=== PATIENT | female | born 1960 | race Caucasian/White ===

== ENCOUNTER 2019-08-23 04:36 | Inpatient (IN) ==
[2019-08-23] MEDS ORDERED: Naloxone 0.4 MG/ML INJ IVP PRN (07:22)
[2019-08-23] MEDS ORDERED: Ringers Solution, Lactated 500 ML IVC ONE ×2 (07:30→07:45)
[2019-08-23] MEDS ORDERED: Piperacillin/Tazobactam 3.375 GM in 0.9 % Sodium Chloride Mini Bag 100 ML IVPB SCH (08:00)
[2019-08-23 09:47] LABS: Basophils % 0.2 %; Eosinophils % 0.1 %; Hematocrit 31.3 % (35.3-44.9); Hemoglobin 10.4 g/dL (11.5-15.4); Immature Granulocytes % 0.5 % (0-4); Lymphocytes # 2.2 K/mcL (0.6-4.6); Lymphocytes % 15.1 %; Mean Corpuscular HGB Conc 33.2 g/dL (31.6-35.5); Mean Corpuscular Hemoglobin 25.7 pg (28.0-33.3); Mean Corpuscular Volume 77.3 fL (83.0-100.0); Mean Platelet Volume 10.5 fL (9.4-12.4); Monocytes # 1.9 K/mcL (0.0-1.3); Monocytes % 12.6 %; Neutrophils # 10.6 K/mcL (1.6-8.9); Platelet Count 288 K/mcL (140-400); Red Blood Count 4.05 M/mcL (3.82-4.97); Red Cell Distribution Width 18.5 % (11.5-14.5); Segmented Neutrophils % 71.5 %; White Blood Count 14.8 K/mcL (4.3-11.1)
[2019-08-23] MEDS: 0.9 % Sodium Chloride 1,000 ML IVC SCH (09:50)
[2019-08-23 09:53] LABS: INR 2.4; Prothrombin Time 27.2 Seconds (9.4-12.1)
[2019-08-23] MEDS ORDERED: 0.9 % Sodium Chloride 500 ML IVC ONE (10:09)
[2019-08-23 10:15] LABS: Alanine Aminotransferase 18 Units/L (7-52); Albumin 2.7 g/dL (3.5-5.7); Albumin/Globulin Ratio 0.8 (1.1-2.2); Alkaline Phosphatase 116 Units/L (34-104); Aspartate Amino Transferase 55 Units/L (13-39); Bilirubin,Total 0.8 mg/dL (0.3-1.0); Blood Urea Nitrogen < 2 mg/dL (6-20); Calcium 7.2 mg/dL (8.6-10.3); Carbon Dioxide 24 mEq/L (23-29); Chloride 93 mEq/L (98-107); Globulin 3.2 g/dL (2.4-3.5); Glucose 90 mg/dL (70-105); Magnesium 1.5 mg/dL (1.6-2.6); Phosphorous 2.1 mg/dL (2.7-4.5); Potassium 2.7 mEq/L (3.5-5.1); Sodium 132 mEq/L (136-145); Total Protein 5.9 g/dL (6.4-8.9); eGFR For African Americans > 60 (> 60); eGFR For Non-African Americans > 60 (> 60)
[2019-08-23] MEDS: Acetaminophen 325 MG TABLET PO PRN (12:10)
[2019-08-23] MEDS: Ondansetron 4 MG/2 ML VIAL IVP PRN (12:10)
[2019-08-23 13:32] LABS: Adenovirus Not Detected (Not Detect); Bordetella Pertussis Not Detected (Not Detect); Chlamydophila pneumoniae Not Detected (Not Detect); Coronavirus 229E Not Detected (Not Detect); Coronavirus HKU1 Not Detected (Not Detect); Coronavirus NL63 Not Detected (Not Detect); Coronavirus OC43 Not Detected (Not Detect); Human Metapneumovirus Not Detected (Not Detect); Human Rhinovirus/Enterovirus Not Detected (Not Detect); Influenza A Subtype 2009 H1 Not Detected (Not Detect); Influenza B Not Detected (Not Detect); Mycoplasma pneumoniae Not Detected (Not Detect); Parainfluenza Virus 1 Not Detected (Not Detect); Parainfluenza Virus 2 Not Detected (Not Detect); Parainfluenza Virus 3 Not Detected (Not Detect); Parainfluenza Virus 4 Not Detected (Not Detect); Respiratory Syncytial Virus Not Detected (Not Detect)
[2019-08-23] MEDS ORDERED: Acetaminophen IV 1,000 MG/100 ML INFUS..BTL IVPB ONE (13:32)
[2019-08-23] MEDS ORDERED: Acetaminophen 325 MG TABLET PO ONE (13:58)
[2019-08-23 15:23] LABS: BUN/Creatinine Ratio 4 (6-26); Blood Urea Nitrogen 2 mg/dL (6-20); Calcium 6.6 mg/dL (8.6-10.3); Carbon Dioxide 23 mEq/L (23-29); Chloride 94 mEq/L (98-107); Glucose 104 mg/dL (70-105); Magnesium 1.8 mg/dL (1.6-2.6); Osmolality,Calculated 266 (280-300); Phosphorous 2.3 mg/dL (2.7-4.5); Potassium 2.8 mEq/L (3.5-5.1); Sodium 130 mEq/L (136-145); eGFR For African Americans > 60 (> 60); eGFR For Non-African Americans > 60 (> 60)
[2019-08-23 15:35] LABS: Adenovirus F 40/41 PCR Not detected (Not detect); Astrovirus PCR Not detected (Not detect); C.difficile Toxin A/B Gene PCR Not detected (Not detect); Campylobacter by PCR Not detected (Not detect); Cryptosporidium by PCR Not detected (Not detect); Cyclospora cayetanensis PCR Not detected (Not detect); E. coli O157 by PCR Not detected (Not detect); Entamoeba histolytica PCR Not detected (Not detect); Enteroaggregative E.coli(EAEC) Not detected (Not detect); Enteropathogenic E.coli(EPEC) Not detected (Not detect); Enterotoxigenic E.coli (ETEC) Not detected (Not detect); Giardia lamblia PCR Not detected (Not detect); Norovirus GI/GII PCR Not detected (Not detect); Plesiomonas shigelloides PCR Not detected (Not detect); Rotavirus A PCR Not detected (Not detect); Salmonella PCR Not detected (Not detect); Sapovirus PCR Not detected (Not detect); Shig/EnteroinvasiveE coli EIEC Not detected (Not detect); Shigalike tox-prod E coli STEC Not detected (Not detect); Vibrio PCR Not detected (Not detect); Vibrio cholerae PCR Not detected (Not detect); Yersinia enterocolitica PCR Not detected (Not detect)
[2019-08-23] MEDS ORDERED: Potassium Chloride 40 MEQ, Lidocaine 1% 2 ML in 0.9 % Sodium Chloride 500 ML IVPB ONE (15:39)
[2019-08-23] MEDS ORDERED: Isovue-370 500 ML BOTTLE IVP ONE (15:47)
[2019-08-23] MEDS: Cefepime HCl 2,000 MG in Water for inj. (sterile) 20 ML IVP SCH (17:19)
[2019-08-23] MEDS ORDERED: Gadolinium Contrast Agent (WT Based) IV PRN (18:14)
[2019-08-23] MEDS: Calcium Gluconate 1gm/50mL 1 GM/50 ML BAG IVPB SCH ×2 (18:57→19:57)
[2019-08-23] MEDS: Piperacillin/Tazobactam 3.375 GM in 0.9 % Sodium Chloride Mini Bag 100 ML IVPB SCH (19:21)
[2019-08-24] MEDS: Cefepime HCl 2,000 MG in Water for inj. (sterile) 20 ML IVP SCH ×2 (01:15→09:30)
[2019-08-24] MEDS: Piperacillin/Tazobactam 3.375 GM in 0.9 % Sodium Chloride Mini Bag 100 ML IVPB SCH ×3 (01:18→18:03)
[2019-08-24 02:20] LABS: Basophils % 0.2 %; Eosinophils # 0.2 K/mcL (0.0-0.6); Eosinophils % 1.8 %; Hematocrit 29.2 % (35.3-44.9); Hemoglobin 9.3 g/dL (11.5-15.4); Immature Granulocytes % 0.5 % (0-4); Lymphocytes # 1.1 K/mcL (0.6-4.6); Lymphocytes % 8.6 %; Mean Corpuscular HGB Conc 31.8 g/dL (31.6-35.5); Mean Corpuscular Hemoglobin 25.6 pg (28.0-33.3); Mean Corpuscular Volume 80.4 fL (83.0-100.0); Mean Platelet Volume 11.2 fL (9.4-12.4); Monocytes % 7.9 %; Neutrophils # 10.6 K/mcL (1.6-8.9); Platelet Count 232 K/mcL (140-400); Red Blood Count 3.63 M/mcL (3.82-4.97); Red Cell Distribution Width 18.6 % (11.5-14.5); White Blood Count 13.1 K/mcL (4.3-11.1)
[2019-08-24 02:30] LABS: INR 2.6; Prothrombin Time 29.7 Seconds (9.4-12.1)
[2019-08-24 02:40] LABS: Alanine Aminotransferase 17 Units/L (7-52); Albumin 2.4 g/dL (3.5-5.7); Albumin/Globulin Ratio 0.8 (1.1-2.2); Alkaline Phosphatase 110 Units/L (34-104); Aspartate Amino Transferase 55 Units/L (13-39); BUN/Creatinine Ratio 6 (6-26); Blood Urea Nitrogen 3 mg/dL (6-20); Calcium 7.3 mg/dL (8.6-10.3); Carbon Dioxide 26 mEq/L (23-29); Chloride 98 mEq/L (98-107); Glucose 108 mg/dL (70-105); Magnesium 1.8 mg/dL (1.6-2.6); Osmolality,Calculated 277 (280-300); Phosphorous 2.4 mg/dL (2.7-4.5); Potassium 3.2 mEq/L (3.5-5.1); Sodium 135 mEq/L (136-145); Total Protein 5.4 g/dL (6.4-8.9); eGFR For African Americans > 60 (> 60); eGFR For Non-African Americans > 60 (> 60)
[2019-08-24 02:41] LABS: % Iron Saturation 7 % (15-50); Iron 12 mcg/dL (50-170); Transferrin 127 mg/dL (203-362)
[2019-08-24 02:58] LABS: Ferritin 706 ng/mL (10-120)
[2019-08-24 03:07] LABS: Vitamin B12 > 1500 pg/mL (250-1100)
[2019-08-24] MEDS: Ondansetron 4 MG/2 ML VIAL IVP PRN (03:14)
[2019-08-24] MEDS: 0.9 % Sodium Chloride 1,000 ML IVC SCH (05:30)
[2019-08-24] MEDS: Acetaminophen 325 MG TABLET PO PRN ×2 (08:01→14:22)
[2019-08-24] MEDS ORDERED: *HR* Labetalol 20 MG/4 ML SYRINGE IVP PRN (08:21)
[2019-08-24] MEDS: Diphenoxylate/Atropine 1 TAB TABLET PO PRN (14:23)
[2019-08-25] MEDS: Ondansetron 4 MG/2 ML VIAL IVP PRN (00:32)
[2019-08-25 01:01] LABS: Basophils % 0.5 %; Eosinophils # 0.4 K/mcL (0.0-0.6); Eosinophils % 4.3 %; Hematocrit 26.7 % (35.3-44.9); Hemoglobin 8.3 g/dL (11.5-15.4); Immature Granulocytes % 0.6 % (0-4); Lymphocytes # 1.4 K/mcL (0.6-4.6); Lymphocytes % 16.7 %; Mean Corpuscular HGB Conc 31.1 g/dL (31.6-35.5); Mean Corpuscular Hemoglobin 25.4 pg (28.0-33.3); Mean Corpuscular Volume 81.7 fL (83.0-100.0); Mean Platelet Volume 10.6 fL (9.4-12.4); Monocytes # 0.9 K/mcL (0.0-1.3); Neutrophils # 5.7 K/mcL (1.6-8.9); Platelet Count 214 K/mcL (140-400); Red Blood Count 3.27 M/mcL (3.82-4.97); Red Cell Distribution Width 18.3 % (11.5-14.5); Segmented Neutrophils % 66.9 %; White Blood Count 8.5 K/mcL (4.3-11.1)
[2019-08-25] MEDS: Piperacillin/Tazobactam 3.375 GM in 0.9 % Sodium Chloride Mini Bag 100 ML IVPB SCH ×3 (01:02→15:51)
[2019-08-25] MEDS: 0.9 % Sodium Chloride 1,000 ML IVC SCH ×3 (01:06→18:34)
[2019-08-25 01:22] LABS: BUN/Creatinine Ratio 7 (6-26); Blood Urea Nitrogen 3 mg/dL (6-20); Calcium 6.9 mg/dL (8.6-10.3); Carbon Dioxide 27 mEq/L (23-29); Chloride 100 mEq/L (98-107); Glucose 109 mg/dL (70-105); Magnesium 1.7 mg/dL (1.6-2.6); Osmolality,Calculated 275 (280-300); Phosphorous 1.6 mg/dL (2.7-4.5); Potassium 2.7 mEq/L (3.5-5.1); Sodium 134 mEq/L (136-145); eGFR For African Americans > 60 (> 60); eGFR For Non-African Americans > 60 (> 60)
[2019-08-25] MEDS: Diphenoxylate/Atropine 1 TAB TABLET PO PRN (07:52)
[2019-08-25] MEDS ORDERED: Aminoglycoside Consult 1 EACH MC ONE (08:55)
[2019-08-25] MEDS ORDERED: 0.9 % Sodium Chloride 1,000 ML IVC SCH (16:00)
[2019-08-26] MEDS: Piperacillin/Tazobactam 3.375 GM in 0.9 % Sodium Chloride Mini Bag 100 ML IVPB SCH ×2 (00:02→07:48)
[2019-08-26] MEDS: *HR* Labetalol 20 MG/4 ML SYRINGE IVP PRN ×2 (03:27→07:56)
[2019-08-26 06:27] LABS: Hematocrit 27.4 % (35.3-44.9); Hemoglobin 8.7 g/dL (11.5-15.4); Mean Corpuscular HGB Conc 31.8 g/dL (31.6-35.5); Mean Corpuscular Hemoglobin 25.1 pg (28.0-33.3); Mean Corpuscular Volume 79.2 fL (83.0-100.0); Mean Platelet Volume 10.9 fL (9.4-12.4); Platelet Count 247 K/mcL (140-400); Red Blood Count 3.46 M/mcL (3.82-4.97); White Blood Count 9.8 K/mcL (4.3-11.1)
[2019-08-26 06:47] LABS: INR 1.7; Prothrombin Time 18.9 Seconds (9.4-12.1)
[2019-08-26 06:55] LABS: Blood Urea Nitrogen < 2 mg/dL (6-20); Carbon Dioxide 24 mEq/L (23-29); Chloride 104 mEq/L (98-107); Glucose 91 mg/dL (70-105); Magnesium 1.8 mg/dL (1.6-2.6); Phosphorous 1.2 mg/dL (2.7-4.5); Potassium 3.1 mEq/L (3.5-5.1); Sodium 140 mEq/L (136-145); eGFR For African Americans > 60 (> 60); eGFR For Non-African Americans > 60 (> 60)
[2019-08-26] MEDS: Diphenoxylate/Atropine 1 TAB TABLET PO PRN ×2 (07:55→16:55)
[2019-08-26] MEDS ORDERED: levoFLOXacin 750 MG/150 ML 750 MG/150 ML BAG IVPB SCH ×2 (09:00)
[2019-08-26] MEDS ORDERED: Potassium Phosphate 44 MEQ in 0.9 % Sodium Chloride 250 ML IVPB ONE (11:37)
[2019-08-26] MEDS: levoFLOXacin 750 MG/150 ML 750 MG/150 ML BAG IVPB SCH (22:12)
[2019-08-27] MEDS: Diphenoxylate/Atropine 1 TAB TABLET PO PRN (00:54)
[2019-08-27] MEDS ORDERED: levoFLOXacin 750 MG/150 ML 750 MG/150 ML BAG IVPB SCH (09:00)
[2019-08-27 14:41] LABS: BUN/Creatinine Ratio 3 (6-26); Blood Urea Nitrogen 2 mg/dL (6-20); Calcium 7.1 mg/dL (8.6-10.3); Carbon Dioxide 25 mEq/L (23-29); Chloride 102 mEq/L (98-107); Glucose 135 mg/dL (70-105); Magnesium 1.3 mg/dL (1.6-2.6); Osmolality,Calculated 282 (280-300); Potassium 2.9 mEq/L (3.5-5.1); Sodium 137 mEq/L (136-145); eGFR For African Americans > 60 (> 60); eGFR For Non-African Americans > 60 (> 60)
[2019-08-27] MEDS ORDERED: Potassium Chloride 40 MEQ, Lidocaine 1% 2 ML in D5% in Water 500 ML IVPB ONE (14:49)
[2019-08-27] MEDS ORDERED: *HR* OxyCODONE Immed Rel 5 MG TABLET PO PRN (14:51)
[2019-08-27] MEDS: BuPROPion XL (24 HR) 150 MG TABLET PO SCH (17:32)
[2019-08-27] MEDS: levoFLOXacin 750 MG/150 ML 750 MG/150 ML BAG IVPB SCH (19:22)
[2019-08-27] MEDS: *HR* Labetalol 20 MG/4 ML SYRINGE IVP PRN (23:51)
[2019-08-28 02:13] LABS: Hematocrit 29.3 % (35.3-44.9); Hemoglobin 9.4 g/dL (11.5-15.4); Mean Corpuscular HGB Conc 32.1 g/dL (31.6-35.5); Mean Corpuscular Hemoglobin 25.3 pg (28.0-33.3); Mean Platelet Volume 10.7 fL (9.4-12.4); Platelet Count 243 K/mcL (140-400); Red Blood Count 3.71 M/mcL (3.82-4.97); Red Cell Distribution Width 20.4 % (11.5-14.5); White Blood Count 10.3 K/mcL (4.3-11.1)
[2019-08-28 02:30] LABS: BUN/Creatinine Ratio 3 (6-26); Blood Urea Nitrogen 2 mg/dL (6-20); Calcium 7.4 mg/dL (8.6-10.3); Carbon Dioxide 23 mEq/L (23-29); Chloride 102 mEq/L (98-107); Glucose 93 mg/dL (70-105); Magnesium 1.5 mg/dL (1.6-2.6); Osmolality,Calculated 276 (280-300); Potassium 3.1 mEq/L (3.5-5.1); Sodium 135 mEq/L (136-145); eGFR For African Americans > 60 (> 60); eGFR For Non-African Americans > 60 (> 60)
[2019-08-28] MEDS ORDERED: Potassium Chloride 40 MEQ, Lidocaine 1% 2 ML in D5% in Water 500 ML IVPB ONE ×2 (07:16→11:50)
[2019-08-28] MEDS: BuPROPion XL (24 HR) 150 MG TABLET PO SCH (07:56)
[2019-08-28] MEDS: Folic Acid 1 MG TABLET PO SCH (07:56)
[2019-08-28] MEDS: *HR* Labetalol 20 MG/4 ML SYRINGE IVP PRN (12:51)
[2019-08-28] MEDS ORDERED: 0.9 % Sodium Chloride 1,000 ML IVC ONE (14:12)
[2019-08-28] MEDS: 0.9 % Sodium Chloride 1,000 ML IVC SCH (16:34)
[2019-08-28] MEDS: Cholestyramine 4 GM POWD.PACK PO SCH (16:35)
[2019-08-28] MEDS ORDERED: Dexamethasone 4 MG/ML VIAL IVP ONE (17:13)
[2019-08-28] MEDS: levoFLOXacin 750 MG/150 ML 750 MG/150 ML BAG IVPB SCH (18:05)
[2019-08-28 23:02] LABS: Bilirubin,Urine Negative (Negative); Blood,Urine Negative (Negative); Clarity,Urine Clear (Clear); Color,Urine Yellow (Yellow); Glucose,Urine (UA) Normal (Normal); Ketones,Urine Negative (Negative); Leukocyte Esterase,Urine Negative (Negative); Nitrite,Urine Negative (Negative); PH,Urine 6.5 pH Units (5.0-8.0); Protein,Urine Negative (Neg-Trace); Specific Gravity,Urine 1.005 (1.010-1.025); Urobilinogen,Urine Normal (Normal)
[2019-08-29 02:30] LABS: Hematocrit 30.1 % (35.3-44.9); Hemoglobin 9.5 g/dL (11.5-15.4); Mean Corpuscular HGB Conc 31.6 g/dL (31.6-35.5); Mean Corpuscular Hemoglobin 25.4 pg (28.0-33.3); Mean Corpuscular Volume 80.5 fL (83.0-100.0); Mean Platelet Volume 10.8 fL (9.4-12.4); Platelet Count 236 K/mcL (140-400); Red Blood Count 3.74 M/mcL (3.82-4.97); Red Cell Distribution Width 21.3 % (11.5-14.5); White Blood Count 11.6 K/mcL (4.3-11.1)
[2019-08-29] MEDS: 0.9 % Sodium Chloride 1,000 ML IVC SCH (02:43)
[2019-08-29 02:55] LABS: BUN/Creatinine Ratio 5 (6-26); Blood Urea Nitrogen 3 mg/dL (6-20); Calcium 7.3 mg/dL (8.6-10.3); Carbon Dioxide 20 mEq/L (23-29); Chloride 105 mEq/L (98-107); Glucose 146 mg/dL (70-105); Magnesium 1.9 mg/dL (1.6-2.6); Osmolality,Calculated 285 (280-300); Potassium 4.1 mEq/L (3.5-5.1); Sodium 138 mEq/L (136-145); eGFR For African Americans > 60 (> 60); eGFR For Non-African Americans > 60 (> 60)
[2019-08-29] MEDS: Folic Acid 1 MG TABLET PO SCH (08:38)
[2019-08-29] MEDS: BuPROPion XL (24 HR) 150 MG TABLET PO SCH (08:38)
[2019-08-29] MEDS: Cholestyramine 4 GM POWD.PACK PO SCH (08:38)
[2019-08-29] MEDS ORDERED: dexAMETHasone 4 MG TABLET PO SCH (09:00)
[2019-08-29 09:18] VITALS: BP 149/95
== END 2019-08-29 10:50 | disposition home or self-care (01) | DRG 640 ==
LOC: CDU → SUATTDRO 06:09 → CDU 06:12 → 2ANU 16:10
PROVIDERS: ADMIT Internal Medicine; ATTEND Internal Medicine

== ENCOUNTER 2019-09-12 15:10 | Observation (INO) ==
[2019-09-12] MEDS ORDERED: *HR* Promethazine 25 MG/ML VIAL IVP PRN (18:17)
[2019-09-12] MEDS ORDERED: Naloxone 0.4 MG/ML INJ IVP PRN (18:17)
[2019-09-12] MEDS ORDERED: Ondansetron 4 MG/2 ML VIAL IVP PRN (18:17)
[2019-09-12] MEDS ORDERED: *HR* OxyCODONE Immed Rel 5 MG TABLET PO PRN (18:25)
[2019-09-12] MEDS ORDERED: 0.9 % Sodium Chloride 1,000 ML IVC SCH (18:30)
[2019-09-12 19:07] LABS: BUN/Creatinine Ratio 16 (6-26); Blood Urea Nitrogen 15 mg/dL (6-20); Calcium 7.4 mg/dL (8.6-10.3); Carbon Dioxide 20 mEq/L (23-29); Chloride 99 mEq/L (98-107); Glucose 100 mg/dL (70-105); Osmolality,Calculated 273 (280-300); Potassium 4.8 mEq/L (3.5-5.1); Sodium 131 mEq/L (136-145); eGFR For African Americans > 60 (> 60); eGFR For Non-African Americans > 60 (> 60)
[2019-09-12] MEDS: Pantoprazole 40 MG VIAL IVP SCH (19:37)
[2019-09-12] MEDS: *HR* Heparin 5,000 UNIT/ML VIAL SQ SCH (21:01)
[2019-09-13] MEDS ORDERED: 0.9 % Sodium Chloride 1,000 ML IVC ONE (00:42)
[2019-09-13] MEDS: 0.9 % Sodium Chloride 1,000 ML IVC SCH ×2 (01:29→08:23)
[2019-09-13 02:05] LABS: Adenovirus F 40/41 PCR Not detected (Not detect); Astrovirus PCR Not detected (Not detect); C.difficile Toxin A/B Gene PCR Not detected (Not detect); Campylobacter by PCR Not detected (Not detect); Cryptosporidium by PCR Not detected (Not detect); Cyclospora cayetanensis PCR Not detected (Not detect); E. coli O157 by PCR Not detected (Not detect); Entamoeba histolytica PCR Not detected (Not detect); Enteroaggregative E.coli(EAEC) Not detected (Not detect); Enteropathogenic E.coli(EPEC) Not detected (Not detect); Enterotoxigenic E.coli (ETEC) Not detected (Not detect); Giardia lamblia PCR Not detected (Not detect); Norovirus GI/GII PCR Not detected (Not detect); Plesiomonas shigelloides PCR Not detected (Not detect); Salmonella PCR Not detected (Not detect); Shig/EnteroinvasiveE coli EIEC Not detected (Not detect); Shigalike tox-prod E coli STEC Not detected (Not detect); Vibrio PCR Not detected (Not detect); Vibrio cholerae PCR Not detected (Not detect); Yersinia enterocolitica PCR Not detected (Not detect)
[2019-09-13 02:06] LABS: Rotavirus A PCR Not detected (Not detect); Sapovirus PCR Not detected (Not detect)
[2019-09-13] MEDS: *HR* Heparin 5,000 UNIT/ML VIAL SQ SCH (06:25)
[2019-09-13] MEDS: Pantoprazole 40 MG VIAL IVP SCH (06:25)
[2019-09-13 06:35] LABS: BUN/Creatinine Ratio 15 (6-26); Blood Urea Nitrogen 9 mg/dL (6-20); Calcium 7.1 mg/dL (8.6-10.3); Carbon Dioxide 17 mEq/L (23-29); Chloride 103 mEq/L (98-107); Glucose 94 mg/dL (70-105); Osmolality,Calculated 272 (280-300); Potassium 4.3 mEq/L (3.5-5.1); Sodium 132 mEq/L (136-145); eGFR For African Americans > 60 (> 60); eGFR For Non-African Americans > 60 (> 60)
[2019-09-13 07:09] LABS: Hematocrit 24.4 % (35.3-44.9); Hemoglobin 7.7 g/dL (11.5-15.4); Lymphocytes # 0.8 K/mcL (0.6-4.6); Mean Corpuscular HGB Conc 31.6 g/dL (31.6-35.5); Mean Corpuscular Hemoglobin 25.9 pg (28.0-33.3); Mean Platelet Volume 10.4 fL (9.4-12.4); Platelet Count 234 K/mcL (140-400); Red Blood Count 2.97 M/mcL (3.82-4.97); Red Cell Distribution Width 24.7 % (11.5-14.5); White Blood Count 3.5 K/mcL (4.3-11.1)
[2019-09-13 07:11] LABS: Mean Corpuscular Volume 82.2 fL (83.0-100.0)
[2019-09-13 07:48] LABS: Eosinophils # 0.1 K/mcL (0.0-0.6); Monocytes # 0.5 K/mcL (0.0-1.3); Neutrophils # 2.2 K/mcL (1.6-8.9); Platelet Estimate Normal (Normal)
[2019-09-13 07:49] LABS: Hypochromasia Present (Not Present)
[2019-09-13 07:50] LABS: Anisocytosis 3+ (Not Present); Poikilocytosis 1+ (Not Present)
[2019-09-13] MEDS ORDERED: BuPROPion XL (24 HR) 150 MG TABLET PO SCH (09:00)
[2019-09-13 11:05] VITALS: BP 114/67
== END 2019-09-13 15:17 | disposition home or self-care (01) ==
LOC: 2NNU → SUATTDRO 17:34 → 2NNU 18:05
PROVIDERS: ADMIT Internal Medicine; ATTEND Family Medicine

== ENCOUNTER 2019-09-22 13:50 | Inpatient (IN) ==
[2019-09-22] MEDS ORDERED: Naloxone 0.4 MG/ML INJ IVP PRN (16:19)
[2019-09-22] MEDS ORDERED: 0.9 % Sodium Chloride 1,000 ML IVC ONE (16:29)
[2019-09-22] MEDS ORDERED: Acetaminophen 325 MG TABLET PO PRN (16:29)
[2019-09-22 17:16] LABS: Basophils % 0.2 %; Eosinophils % 0.5 %; Hemoglobin 8.7 g/dL (11.5-15.4); Mean Platelet Volume 9.3 fL (9.4-12.4); Segmented Neutrophils % 91.3 %
[2019-09-22 17:18] LABS: Basophils # 0.1 K/mcL (0.0-0.2); Eosinophils # 0.1 K/mcL (0.0-0.6); Hematocrit 28.4 % (35.3-44.9); Immature Granulocytes % 2.3 % (0-4); Lymphocytes # 0.9 K/mcL (0.6-4.6); Lymphocytes % 3.1 %; Mean Corpuscular HGB Conc 30.6 g/dL (31.6-35.5); Mean Corpuscular Hemoglobin 25.4 pg (28.0-33.3); Monocytes # 0.7 K/mcL (0.0-1.3); Monocytes % 2.6 %; Neutrophils # 25.9 K/mcL (1.6-8.9); Platelet Count 275 K/mcL (140-400); Red Blood Count 3.42 M/mcL (3.82-4.97); Red Cell Distribution Width 23.7 % (11.5-14.5); White Blood Count 28.4 K/mcL (4.3-11.1)
[2019-09-22 17:31] LABS: Albumin 2.5 g/dL (3.5-5.7); Albumin/Globulin Ratio 0.9 (1.1-2.2); Bilirubin,Direct 0.5 mg/dL (0.0-0.2); Bilirubin,Indirect 0.5 mg/dL (0.0-1.0); Calcium 7.1 mg/dL (8.6-10.3); Globulin 2.9 g/dL (2.4-3.5); Magnesium 0.9 mg/dL (1.6-2.6); Phosphorous 4.5 mg/dL (2.7-4.5); Potassium 4.1 mEq/L (3.5-5.1); Total Protein 5.4 g/dL (6.4-8.9)
[2019-09-22 17:40] LABS: Anisocytosis 3+ (Not Present); Hypochromasia Present (Not Present)
[2019-09-22 17:41] LABS: Polychromasia 1+ (Not Present)
[2019-09-22] MEDS: Vancomycin Oral Soln 125 MG/2.5 ML UDC PO SCH ×2 (17:42→20:18)
[2019-09-22] MEDS: MetroNIDAZOLE 500 MG/100 ML 500 MG/100 ML BAG IVPB SCH (17:43)
[2019-09-22 17:44] LABS: INR 1.9; Prothrombin Time 21.1 Seconds (9.4-12.1)
[2019-09-22] MEDS: Hydrocortisone Sodium Succ 100 MG/2 ML VIAL IVP SCH ×2 (17:44→23:31)
[2019-09-22] MEDS: 0.9 % Sodium Chloride 1,000 ML IVC SCH (17:44)
[2019-09-22] MEDS ORDERED: Norepinephrine 4 MG in 0.9 % Sodium Chloride 250 ML IVC SCH (17:45)
[2019-09-22] MEDS: Calcium Gluconate 1gm/50mL 1 GM/50 ML BAG IVPB SCH ×2 (18:38→20:14)
[2019-09-22 19:30] LABS: Adenovirus Not Detected (Not Detect); Coronavirus 229E Not Detected (Not Detect); Coronavirus HKU1 Not Detected (Not Detect); Coronavirus NL63 Not Detected (Not Detect); Coronavirus OC43 Not Detected (Not Detect); Human Metapneumovirus Not Detected (Not Detect)
[2019-09-22 19:31] LABS: Bordetella Pertussis Not Detected (Not Detect); Chlamydophila pneumoniae Not Detected (Not Detect); Human Rhinovirus/Enterovirus Not Detected (Not Detect); Influenza A Subtype 2009 H1 Not Detected (Not Detect); Influenza B Not Detected (Not Detect); Mycoplasma pneumoniae Not Detected (Not Detect); Parainfluenza Virus 1 Not Detected (Not Detect); Parainfluenza Virus 2 Not Detected (Not Detect); Parainfluenza Virus 3 Not Detected (Not Detect); Parainfluenza Virus 4 Not Detected (Not Detect); Respiratory Syncytial Virus Not Detected (Not Detect)
[2019-09-22 20:07] LABS: Adenovirus F 40/41 PCR Not detected (Not detect); Astrovirus PCR Not detected (Not detect); C.difficile Toxin A/B Gene PCR Not detected (Not detect); Campylobacter by PCR Not detected (Not detect); Cryptosporidium by PCR Not detected (Not detect); Cyclospora cayetanensis PCR Not detected (Not detect); E. coli O157 by PCR Not detected (Not detect); Entamoeba histolytica PCR Not detected (Not detect); Enteroaggregative E.coli(EAEC) Not detected (Not detect); Enteropathogenic E.coli(EPEC) Not detected (Not detect); Enterotoxigenic E.coli (ETEC) Not detected (Not detect); Giardia lamblia PCR Not detected (Not detect); Norovirus GI/GII PCR Not detected (Not detect); Plesiomonas shigelloides PCR Not detected (Not detect); Rotavirus A PCR Not detected (Not detect); Salmonella PCR Not detected (Not detect); Sapovirus PCR Not detected (Not detect); Shig/EnteroinvasiveE coli EIEC Not detected (Not detect); Shigalike tox-prod E coli STEC Not detected (Not detect); Vibrio PCR Not detected (Not detect); Vibrio cholerae PCR Not detected (Not detect); Yersinia enterocolitica PCR Not detected (Not detect)
[2019-09-22] MEDS: *HR* Heparin 5,000 UNIT/ML VIAL SQ SCH (23:32)
[2019-09-23] MEDS: MetroNIDAZOLE 500 MG/100 ML 500 MG/100 ML BAG IVPB SCH (02:31)
[2019-09-23] MEDS: Hydrocortisone Sodium Succ 100 MG/2 ML VIAL IVP SCH (05:46)
[2019-09-23] MEDS: 0.9 % Sodium Chloride 1,000 ML IVC SCH ×3 (05:50→18:56)
[2019-09-23 07:06] LABS: VBG Ionized Calcium 1.06 mmol/L (1.15-1.35)
[2019-09-23 07:15] LABS: Basophils % 0.2 %; Eosinophils % 0.1 %; Immature Granulocytes % 1.9 % (0-4); Monocytes % 3.2 %
[2019-09-23 07:16] LABS: Basophils # 0.1 K/mcL (0.0-0.2); Hematocrit 27.2 % (35.3-44.9); Hemoglobin 8.5 g/dL (11.5-15.4); Lymphocytes # 0.8 K/mcL (0.6-4.6); Lymphocytes % 2.8 %; Mean Corpuscular HGB Conc 31.3 g/dL (31.6-35.5); Mean Corpuscular Hemoglobin 26.3 pg (28.0-33.3); Mean Corpuscular Volume 84.2 fL (83.0-100.0); Mean Platelet Volume 9.6 fL (9.4-12.4); Neutrophils # 27.3 K/mcL (1.6-8.9); Platelet Count 263 K/mcL (140-400); Red Blood Count 3.23 M/mcL (3.82-4.97); Red Cell Distribution Width 23.9 % (11.5-14.5); Segmented Neutrophils % 91.8 %; White Blood Count 29.7 K/mcL (4.3-11.1)
[2019-09-23 07:19] LABS: Albumin 2.8 g/dL (3.5-5.7); Albumin/Globulin Ratio 0.9 (1.1-2.2); Bilirubin,Direct 0.2 mg/dL (0.0-0.2); Bilirubin,Indirect 0.3 mg/dL (0.0-1.0); Bilirubin,Total 0.5 mg/dL (0.3-1.0); Calcium 7.5 mg/dL (8.6-10.3); Globulin 3.1 g/dL (2.4-3.5); Magnesium 1.3 mg/dL (1.6-2.6); Phosphorous 5.4 mg/dL (2.7-4.5); Potassium 3.4 mEq/L (3.5-5.1); Total Protein 5.9 g/dL (6.4-8.9)
[2019-09-23 07:37] LABS: INR 2.2; Prothrombin Time 24.7 Seconds (9.4-12.1)
[2019-09-23 07:39] LABS: Activated Partial Thrombo Time 31.1 Seconds (26.0-36.0)
[2019-09-23] MEDS: *HR* Heparin 5,000 UNIT/ML VIAL SQ SCH ×3 (07:54→20:28)
[2019-09-23 07:55] LABS: Hypochromasia Present (Not Present)
[2019-09-23 07:56] LABS: Anisocytosis 2+ (Not Present); Platelet Estimate Normal (Normal); Reactive Lymphocytes Present (Not Present)
[2019-09-23 08:23] LABS: Bilirubin,Urine Negative (Negative); Blood,Urine Negative (Negative); Clarity,Urine Clear (Clear); Color,Urine Yellow (Yellow); Glucose,Urine (UA) Normal (Normal); Ketones,Urine Negative (Negative); Leukocyte Esterase,Urine Negative (Negative); Nitrite,Urine Negative (Negative); Protein,Urine Negative (Neg-Trace); Specific Gravity,Urine 1.011 (1.010-1.025); Urobilinogen,Urine Normal (Normal)
[2019-09-23] MEDS ORDERED: *HR* OxyCODONE Immed Rel 5 MG TABLET PO PRN (08:48)
[2019-09-23] MEDS ORDERED: *HR* LORazepam 0.5 MG TABLET PO PRN (08:48)
[2019-09-23] MEDS ORDERED: Naloxone 0.4 MG/ML INJ IVP PRN (08:48)
[2019-09-23] MEDS: dexAMETHasone 4 MG TABLET PO SCH (09:40)
[2019-09-23] MEDS: BuPROPion XL (24 HR) 150 MG TABLET PO SCH (09:40)
[2019-09-23] MEDS: Folic Acid 1 MG TABLET PO SCH (09:41)
[2019-09-23] MEDS: Cholecalciferol (D-3) 1,000 UNIT (25MCG) TABLET PO SCH (09:41)
[2019-09-23] MEDS: Multivit/Ca/Min/Fe/FA 1 TAB TABLET PO SCH (09:41)
[2019-09-23] MEDS: Diphenoxylate/Atropine 1 TAB TABLET PO PRN (13:11)
[2019-09-23] MEDS: Cholestyramine 4 GM POWD.PACK PO SCH (16:55)
[2019-09-23] MEDS ORDERED: Piperacillin/Tazobactam 3.375 GM in 0.9 % Sodium Chloride Mini Bag 100 ML IVPB SCH (19:22)
[2019-09-23] MEDS: Piperacillin/Tazobactam 3.375 GM in 0.9 % Sodium Chloride Mini Bag 100 ML IVPB SCH (20:28)
[2019-09-24] MEDS: Piperacillin/Tazobactam 3.375 GM in 0.9 % Sodium Chloride Mini Bag 100 ML IVPB SCH ×3 (03:35→20:56)
[2019-09-24] MEDS: *HR* Heparin 5,000 UNIT/ML VIAL SQ SCH ×3 (05:56→20:55)
[2019-09-24] MEDS: 0.9 % Sodium Chloride 1,000 ML IVC SCH ×2 (05:57→16:04)
[2019-09-24 06:49] LABS: White Blood Count 19.9 K/mcL (4.3-11.1)
[2019-09-24 06:50] LABS: Basophils % 0.1 %; Hematocrit 23.7 % (35.3-44.9); Hemoglobin 7.4 g/dL (11.5-15.4); Immature Granulocytes % 1.3 % (0-4); Lymphocytes # 0.7 K/mcL (0.6-4.6); Lymphocytes % 3.7 %; Mean Corpuscular HGB Conc 31.2 g/dL (31.6-35.5); Mean Corpuscular Volume 83.2 fL (83.0-100.0); Mean Platelet Volume 9.8 fL (9.4-12.4); Monocytes # 0.8 K/mcL (0.0-1.3); Monocytes % 4.2 %; Platelet Count 263 K/mcL (140-400); Red Blood Count 2.85 M/mcL (3.82-4.97); Red Cell Distribution Width 23.9 % (11.5-14.5); Segmented Neutrophils % 90.7 %
[2019-09-24 06:54] LABS: Neutrophils # 18.1 K/mcL (1.6-8.9)
[2019-09-24 07:14] LABS: Anisocytosis 2+ (Not Present); Ovalocytes 1+ (Not Present); Tear Drop Cells 1+ (Not Present)
[2019-09-24 07:25] LABS: Alanine Aminotransferase 33 Units/L (7-52); Albumin 2.5 g/dL (3.5-5.7); Albumin/Globulin Ratio 0.8 (1.1-2.2); Alkaline Phosphatase 158 Units/L (34-104); Aspartate Amino Transferase 46 Units/L (13-39); BUN/Creatinine Ratio 22 (6-26); Bilirubin,Total 0.4 mg/dL (0.3-1.0); Blood Urea Nitrogen 17 mg/dL (6-20); Calcium 6.8 mg/dL (8.6-10.3); Carbon Dioxide 15 mEq/L (23-29); Chloride 110 mEq/L (98-107); Glucose 118 mg/dL (70-105); Osmolality,Calculated 285 (280-300); Potassium 3.1 mEq/L (3.5-5.1); Sodium 136 mEq/L (136-145); Total Protein 5.5 g/dL (6.4-8.9); eGFR For African Americans > 60 (> 60); eGFR For Non-African Americans > 60 (> 60)
[2019-09-24] MEDS ORDERED: Cholestyramine 4 GM POWD.PACK PO ONE ×2 (08:11)
[2019-09-24] MEDS ORDERED: 0.9 % Sodium Chloride (Mini-Bag +) 100 ML IVBAG ONE (08:11)
[2019-09-24] MEDS ORDERED: Piperacillin/Tazobactam 3.375 GM VIAL ONE (08:11)
[2019-09-24] MEDS ORDERED: Cholecalciferol (D-3) 1,000 UNIT (25MCG) TABLET PO ONE (08:11)
[2019-09-24] MEDS ORDERED: Multivit/Ca/Min/Fe/FA 1 TAB TABLET ONE (08:11)
[2019-09-24] MEDS ORDERED: BuPROPion XL (24 HR) 150 MG TABLET PO ONE (08:11)
[2019-09-24] MEDS ORDERED: Folic Acid 1 MG TABLET ONE (08:11)
[2019-09-24] MEDS ORDERED: dexAMETHasone 4 MG TABLET PO ONE (08:11)
[2019-09-24] MEDS ORDERED: Aminoglycoside Consult 1 EACH MC ONE (08:56)
[2019-09-24 14:17] LABS: Magnesium 1.5 mg/dL (1.6-2.6)
[2019-09-24] MEDS: Cholestyramine 4 GM POWD.PACK PO SCH ×2 (16:01→16:44)
[2019-09-24] MEDS: Cholecalciferol (D-3) 1,000 UNIT (25MCG) TABLET PO SCH (16:02)
[2019-09-24] MEDS: Multivit/Ca/Min/Fe/FA 1 TAB TABLET PO SCH (16:02)
[2019-09-24] MEDS: BuPROPion XL (24 HR) 150 MG TABLET PO SCH (16:02)
[2019-09-24] MEDS: Folic Acid 1 MG TABLET PO SCH (16:02)
[2019-09-24] MEDS: dexAMETHasone 4 MG TABLET PO SCH (16:04)
[2019-09-24] MEDS: Calcium Gluconate 1gm/50mL 1 GM/50 ML BAG IVPB SCH ×2 (16:56→18:15)
[2019-09-25 03:40] LABS: Hematocrit 24.2 % (35.3-44.9); Hemoglobin 7.5 g/dL (11.5-15.4); Mean Corpuscular Hemoglobin 25.6 pg (28.0-33.3); Mean Corpuscular Volume 82.6 fL (83.0-100.0); Mean Platelet Volume 10.2 fL (9.4-12.4); Platelet Count 288 K/mcL (140-400); Red Blood Count 2.93 M/mcL (3.82-4.97); Red Cell Distribution Width 24.1 % (11.5-14.5); White Blood Count 16.1 K/mcL (4.3-11.1)
[2019-09-25] MEDS: Piperacillin/Tazobactam 3.375 GM in 0.9 % Sodium Chloride Mini Bag 100 ML IVPB SCH ×3 (03:42→21:02)
[2019-09-25 03:58] LABS: BUN/Creatinine Ratio 19 (6-26); Blood Urea Nitrogen 15 mg/dL (6-20); Calcium 7.3 mg/dL (8.6-10.3); Carbon Dioxide 16 mEq/L (23-29); Chloride 110 mEq/L (98-107); Glucose 128 mg/dL (70-105); Magnesium 1.8 mg/dL (1.6-2.6); Osmolality,Calculated 286 (280-300); Phosphorous 2.4 mg/dL (2.7-4.5); Potassium 3.1 mEq/L (3.5-5.1); Sodium 137 mEq/L (136-145); eGFR For African Americans > 60 (> 60); eGFR For Non-African Americans > 60 (> 60)
[2019-09-25] MEDS ORDERED: Potassium Chloride 40 MEQ, Lidocaine 1% 2 ML in 0.9 % Sodium Chloride 500 ML IVPB ONE (05:40)
[2019-09-25] MEDS: *HR* Heparin 5,000 UNIT/ML VIAL SQ SCH ×3 (06:09→21:02)
[2019-09-25] MEDS: BuPROPion XL (24 HR) 150 MG TABLET PO SCH (08:58)
[2019-09-25] MEDS: hydroCHLOROthiazide 25 MG TABLET PO SCH (08:58)
[2019-09-25] MEDS: Folic Acid 1 MG TABLET PO SCH (08:58)
[2019-09-25] MEDS: Multivit/Ca/Min/Fe/FA 1 TAB TABLET PO SCH (08:58)
[2019-09-25] MEDS: Cholecalciferol (D-3) 1,000 UNIT (25MCG) TABLET PO SCH (08:58)
[2019-09-25] MEDS ORDERED: HYDROCHLOROTHIAZIDE PO SCH (09:00)
[2019-09-25] MEDS: Cholestyramine 4 GM POWD.PACK PO SCH ×2 (09:00→15:08)
[2019-09-25] MEDS ORDERED: [UNRECOGNIZED DRUG - OTHER] PO SCH (09:00)
[2019-09-25] MEDS ORDERED: OLMESARTAN PO SCH (09:00)
[2019-09-26] MEDS: Ondansetron ODT 4 MG TAB.RAPDIS PO PRN (02:13)
[2019-09-26 04:12] LABS: Hematocrit 27.1 % (35.3-44.9); Hemoglobin 8.3 g/dL (11.5-15.4); Mean Corpuscular HGB Conc 30.6 g/dL (31.6-35.5); Mean Corpuscular Hemoglobin 25.5 pg (28.0-33.3); Mean Corpuscular Volume 83.4 fL (83.0-100.0); Mean Platelet Volume 10.2 fL (9.4-12.4); Platelet Count 301 K/mcL (140-400); Red Blood Count 3.25 M/mcL (3.82-4.97); Red Cell Distribution Width 24.5 % (11.5-14.5)
[2019-09-26 04:26] LABS: BUN/Creatinine Ratio 15 (6-26); Blood Urea Nitrogen 10 mg/dL (6-20); Calcium 7.6 mg/dL (8.6-10.3); Carbon Dioxide 22 mEq/L (23-29); Chloride 104 mEq/L (98-107); Glucose 66 mg/dL (70-105); Magnesium 1.2 mg/dL (1.6-2.6); Osmolality,Calculated 281 (280-300); Phosphorous 3.4 mg/dL (2.7-4.5); Potassium 3.9 mEq/L (3.5-5.1); Sodium 137 mEq/L (136-145); eGFR For African Americans > 60 (> 60); eGFR For Non-African Americans > 60 (> 60)
[2019-09-26] MEDS: *HR* Heparin 5,000 UNIT/ML VIAL SQ SCH ×3 (05:49→20:47)
[2019-09-26] MEDS: Piperacillin/Tazobactam 3.375 GM in 0.9 % Sodium Chloride Mini Bag 100 ML IVPB SCH ×3 (05:49→20:48)
[2019-09-26] MEDS: hydroCHLOROthiazide 25 MG TABLET PO SCH (09:00)
[2019-09-26] MEDS: BuPROPion XL (24 HR) 150 MG TABLET PO SCH (09:00)
[2019-09-26] MEDS: Cholecalciferol (D-3) 1,000 UNIT (25MCG) TABLET PO SCH (09:00)
[2019-09-26] MEDS: Multivit/Ca/Min/Fe/FA 1 TAB TABLET PO SCH (09:01)
[2019-09-26] MEDS: Folic Acid 1 MG TABLET PO SCH (09:01)
[2019-09-26] MEDS: Cholestyramine 4 GM POWD.PACK PO SCH (09:29)
[2019-09-26] MEDS ORDERED: Ringers Solution, Lactated 1,000 ML IVC ONE (09:34)
[2019-09-26] MEDS ORDERED: Isovue-370 500 ML BOTTLE IVP ONE (12:18)
[2019-09-26] MEDS: amLODIPine 5 MG TABLET PO SCH (13:55)
[2019-09-26] MEDS ORDERED: *HR* Metoprolol 5 MG/5 ML VIAL IVP ONE (20:13)
[2019-09-26] MEDS: Magnesium Oxide 400 MG TABLET PO SCH (20:47)
[2019-09-27] MEDS ORDERED: *HR* Metoprolol 5 MG/5 ML VIAL IVP ONE ×2 (03:39→14:29)
[2019-09-27] MEDS: Piperacillin/Tazobactam 3.375 GM in 0.9 % Sodium Chloride Mini Bag 100 ML IVPB SCH ×3 (04:18→20:52)
[2019-09-27] MEDS: *HR* Heparin 5,000 UNIT/ML VIAL SQ SCH ×3 (04:19→20:51)
[2019-09-27] MEDS: Acetaminophen 325 MG TABLET PO PRN (04:33)
[2019-09-27 06:33] LABS: Hematocrit 29.6 % (35.3-44.9); Hemoglobin 9.2 g/dL (11.5-15.4); Mean Corpuscular HGB Conc 31.1 g/dL (31.6-35.5); Mean Corpuscular Hemoglobin 25.5 pg (28.0-33.3); Platelet Count 287 K/mcL (140-400); Red Blood Count 3.61 M/mcL (3.82-4.97); Red Cell Distribution Width 24.5 % (11.5-14.5)
[2019-09-27 06:40] LABS: White Blood Count 21.7 K/mcL (4.3-11.1)
[2019-09-27 07:01] LABS: BUN/Creatinine Ratio 9 (6-26); Blood Urea Nitrogen 8 mg/dL (6-20); Carbon Dioxide 21 mEq/L (23-29); Chloride 95 mEq/L (98-107); Glucose 61 mg/dL (70-105); Magnesium 1.3 mg/dL (1.6-2.6); Osmolality,Calculated 264 (280-300); Potassium 2.8 mEq/L (3.5-5.1); Sodium 129 mEq/L (136-145); eGFR For African Americans > 60 (> 60); eGFR For Non-African Americans > 60 (> 60)
[2019-09-27] MEDS: Magnesium Oxide 400 MG TABLET PO SCH ×2 (08:33→20:52)
[2019-09-27] MEDS: Folic Acid 1 MG TABLET PO SCH (08:33)
[2019-09-27] MEDS: Cholecalciferol (D-3) 1,000 UNIT (25MCG) TABLET PO SCH (08:33)
[2019-09-27] MEDS: amLODIPine 5 MG TABLET PO SCH (08:33)
[2019-09-27] MEDS: BuPROPion XL (24 HR) 150 MG TABLET PO SCH (08:33)
[2019-09-27] MEDS: Multivit/Ca/Min/Fe/FA 1 TAB TABLET PO SCH (08:33)
[2019-09-27] MEDS ORDERED: Ringers Solution, Lactated 1,000 ML IVC ONE ×2 (10:29→18:36)
[2019-09-27 11:19] LABS: Albumin 2.8 g/dL (3.5-5.7); Albumin/Globulin Ratio 0.8 (1.1-2.2); Bilirubin,Direct 0.4 mg/dL (0.0-0.2); Bilirubin,Indirect 0.5 mg/dL (0.0-1.0); Bilirubin,Total 0.9 mg/dL (0.3-1.0); Globulin 3.3 g/dL (2.4-3.5); Total Protein 6.1 g/dL (6.4-8.9)
[2019-09-27] MEDS ORDERED: 0.9 % Sodium Chloride 500 ML IVC ONE (21:23)
[2019-09-27] MEDS: 0.9 % Sodium Chloride 1,000 ML IVC SCH (22:04)
[2019-09-28] MEDS: Lactobacillus 1 EACH CAP.SPRINK PO SCH ×3 (00:01→21:38)
[2019-09-28 00:46] LABS: Potassium 4.3 mEq/L (3.5-5.1)
[2019-09-28 03:09] LABS: Hematocrit 27.4 % (35.3-44.9); Hemoglobin 8.4 g/dL (11.5-15.4); Mean Corpuscular HGB Conc 30.7 g/dL (31.6-35.5); Mean Corpuscular Hemoglobin 25.4 pg (28.0-33.3); Mean Corpuscular Volume 82.8 fL (83.0-100.0); Mean Platelet Volume 10.8 fL (9.4-12.4); Platelet Count 264 K/mcL (140-400); Red Blood Count 3.31 M/mcL (3.82-4.97); Red Cell Distribution Width 24.5 % (11.5-14.5)
[2019-09-28 03:27] LABS: Magnesium 1.9 mg/dL (1.6-2.6); Phosphorous 5.5 mg/dL (2.7-4.5)
[2019-09-28] MEDS: Ondansetron ODT 4 MG TAB.RAPDIS PO PRN (04:13)
[2019-09-28] MEDS: Acetaminophen 325 MG TABLET PO PRN (05:07)
[2019-09-28] MEDS: *HR* Heparin 5,000 UNIT/ML VIAL SQ SCH ×3 (05:07→21:38)
[2019-09-28] MEDS: Piperacillin/Tazobactam 3.375 GM in 0.9 % Sodium Chloride Mini Bag 100 ML IVPB SCH ×3 (05:08→21:37)
[2019-09-28] MEDS: Diphenoxylate/Atropine 1 TAB TABLET PO PRN ×3 (05:08→21:38)
[2019-09-28] MEDS: BuPROPion XL (24 HR) 150 MG TABLET PO SCH (07:35)
[2019-09-28] MEDS: Multivit/Ca/Min/Fe/FA 1 TAB TABLET PO SCH (07:35)
[2019-09-28] MEDS: Folic Acid 1 MG TABLET PO SCH (07:35)
[2019-09-28] MEDS: Magnesium Oxide 400 MG TABLET PO SCH ×2 (07:35→21:39)
[2019-09-28] MEDS: Cholecalciferol (D-3) 1,000 UNIT (25MCG) TABLET PO SCH (07:38)
[2019-09-28] MEDS ORDERED: Isovue-370 500 ML BOTTLE IVP ONE (07:56)
[2019-09-28] MEDS: Hydrocortisone Sodium Succ 100 MG/2 ML VIAL IVP SCH ×3 (08:18→23:38)
[2019-09-28] MEDS ORDERED: 0.9 % Sodium Chloride 250 ML IVC ONE (08:26)
[2019-09-28 08:45] LABS: Albumin 2.3 g/dL (3.5-5.7); Albumin/Globulin Ratio 0.8 (1.1-2.2); Bilirubin,Total 0.7 mg/dL (0.3-1.0); Calcium 7.1 mg/dL (8.6-10.3); Globulin 2.9 g/dL (2.4-3.5); Potassium 3.8 mEq/L (3.5-5.1); Total Protein 5.2 g/dL (6.4-8.9)
[2019-09-28] MEDS ORDERED: *HR* Dextrose 50 % in Water (Syg) 50 ML SYRINGE IVP ONE (09:27)
[2019-09-28 11:57] LABS: Hematocrit 24.9 % (35.3-44.9); Hemoglobin 7.7 g/dL (11.5-15.4); Mean Corpuscular HGB Conc 30.9 g/dL (31.6-35.5); Mean Corpuscular Hemoglobin 25.8 pg (28.0-33.3); Mean Corpuscular Volume 83.3 fL (83.0-100.0); Mean Platelet Volume 9.8 fL (9.4-12.4); Monocytes # 0.8 K/mcL (0.0-1.3); Platelet Count 228 K/mcL (140-400); Red Blood Count 2.99 M/mcL (3.82-4.97)
[2019-09-28 12:27] LABS: Hypochromasia Present (Not Present); Platelet Estimate Normal (Normal)
[2019-09-28 12:28] LABS: Eosinophils # 1.1 K/mcL (0.0-0.6); Lymphocytes # 1.1 K/mcL (0.6-4.6)
[2019-09-28 12:29] LABS: Anisocytosis 1+ (Not Present)
[2019-09-28 12:30] LABS: Microcytosis Present (Not Present); Polychromasia 1+ (Not Present)
[2019-09-28 13:34] LABS: INR 1.8; Prothrombin Time 20.4 Seconds (9.4-12.1)
[2019-09-28] MEDS: 0.9 % Sodium Chloride 1,000 ML IVC SCH (21:39)
[2019-09-29 01:09] LABS: Hematocrit 24.8 % (35.3-44.9); Hemoglobin 7.5 g/dL (11.5-15.4); Mean Corpuscular HGB Conc 30.2 g/dL (31.6-35.5); Mean Corpuscular Hemoglobin 25.4 pg (28.0-33.3); Mean Corpuscular Volume 84.1 fL (83.0-100.0); Mean Platelet Volume 10.2 fL (9.4-12.4); Platelet Count 235 K/mcL (140-400); Red Blood Count 2.95 M/mcL (3.82-4.97); Red Cell Distribution Width 23.9 % (11.5-14.5); White Blood Count 18.7 K/mcL (4.3-11.1)
[2019-09-29 01:29] LABS: BUN/Creatinine Ratio 12 (6-26); Blood Urea Nitrogen 13 mg/dL (6-20); Calcium 6.9 mg/dL (8.6-10.3); Carbon Dioxide 18 mEq/L (23-29); Chloride 103 mEq/L (98-107); Glucose 162 mg/dL (70-105); Osmolality,Calculated 278 (280-300); Potassium 3.8 mEq/L (3.5-5.1); Sodium 132 mEq/L (136-145); eGFR For African Americans > 60 (> 60); eGFR For Non-African Americans 52 (> 60)
[2019-09-29] MEDS: Piperacillin/Tazobactam 3.375 GM in 0.9 % Sodium Chloride Mini Bag 100 ML IVPB SCH ×3 (05:39→20:03)
[2019-09-29] MEDS: *HR* Heparin 5,000 UNIT/ML VIAL SQ SCH ×3 (05:39→23:27)
[2019-09-29] MEDS: 0.9 % Sodium Chloride 1,000 ML IVC SCH ×2 (08:33→08:47)
[2019-09-29] MEDS: Lactobacillus 1 EACH CAP.SPRINK PO SCH ×2 (08:34→20:03)
[2019-09-29] MEDS: Magnesium Oxide 400 MG TABLET PO SCH ×2 (08:34→20:03)
[2019-09-29] MEDS: BuPROPion XL (24 HR) 150 MG TABLET PO SCH (08:34)
[2019-09-29] MEDS: Hydrocortisone Sodium Succ 100 MG/2 ML VIAL IVP SCH (08:34)
[2019-09-29] MEDS: Cholecalciferol (D-3) 1,000 UNIT (25MCG) TABLET PO SCH (08:34)
[2019-09-29] MEDS: Folic Acid 1 MG TABLET PO SCH (08:34)
[2019-09-29] MEDS: Multivit/Ca/Min/Fe/FA 1 TAB TABLET PO SCH (08:34)
[2019-09-29] MEDS: Diphenoxylate/Atropine 1 TAB TABLET PO PRN (20:03)
[2019-09-30 01:17] LABS: Hematocrit 22.7 % (35.3-44.9); Hemoglobin 7.1 g/dL (11.5-15.4); Mean Corpuscular HGB Conc 31.3 g/dL (31.6-35.5); Mean Corpuscular Hemoglobin 25.8 pg (28.0-33.3); Mean Corpuscular Volume 82.5 fL (83.0-100.0); Mean Platelet Volume 10.2 fL (9.4-12.4); Platelet Count 247 K/mcL (140-400); Red Blood Count 2.75 M/mcL (3.82-4.97); Red Cell Distribution Width 23.9 % (11.5-14.5); White Blood Count 15.9 K/mcL (4.3-11.1)
[2019-09-30 01:35] LABS: BUN/Creatinine Ratio 15 (6-26); Blood Urea Nitrogen 14 mg/dL (6-20); Calcium 6.7 mg/dL (8.6-10.3); Carbon Dioxide 18 mEq/L (23-29); Chloride 105 mEq/L (98-107); Glucose 132 mg/dL (70-105); Osmolality,Calculated 274 (280-300); Potassium 2.9 mEq/L (3.5-5.1); Sodium 131 mEq/L (136-145); eGFR For African Americans > 60 (> 60); eGFR For Non-African Americans > 60 (> 60)
[2019-09-30] MEDS: *HR* Heparin 5,000 UNIT/ML VIAL SQ SCH (05:38)
[2019-09-30] MEDS: Piperacillin/Tazobactam 3.375 GM in 0.9 % Sodium Chloride Mini Bag 100 ML IVPB SCH ×2 (05:41→12:53)
[2019-09-30] MEDS: Cholecalciferol (D-3) 1,000 UNIT (25MCG) TABLET PO SCH (08:26)
[2019-09-30] MEDS: Lactobacillus 1 EACH CAP.SPRINK PO SCH (08:26)
[2019-09-30] MEDS: Magnesium Oxide 400 MG TABLET PO SCH (08:26)
[2019-09-30] MEDS: BuPROPion XL (24 HR) 150 MG TABLET PO SCH (08:27)
[2019-09-30] MEDS: Folic Acid 1 MG TABLET PO SCH (08:27)
[2019-09-30] MEDS: Multivit/Ca/Min/Fe/FA 1 TAB TABLET PO SCH (08:27)
[2019-09-30] MEDS ORDERED: dexAMETHasone 4 MG TABLET PO SCH (09:00)
[2019-09-30 09:11] LABS: Bilirubin,Urine Negative (Negative); Clarity,Urine Clear (Clear); Color,Urine Yellow (Yellow); Glucose,Urine (UA) Normal (Normal); Ketones,Urine Negative (Negative); Specific Gravity,Urine 1.009 (1.010-1.025)
[2019-09-30 09:12] LABS: Blood,Urine Negative (Negative); Leukocyte Esterase,Urine Negative (Negative); Nitrite,Urine Negative (Negative); Protein,Urine Negative (Neg-Trace); Urobilinogen,Urine Normal (Normal)
[2019-09-30 15:15] VITALS: BP 142/91
== END 2019-09-30 17:48 | disposition home or self-care (01) | DRG 871 ==
LOC: ICNU 15:38 → SUATTDRO 15:38 → 2NENU 09-23 09:07
PROVIDERS: ADMIT Pediatrics; ATTEND Internal Medicine

== ENCOUNTER 2019-10-11 17:55 | Observation (INO) ==
[2019-10-11] MEDS ORDERED: Naloxone 0.4 MG/ML INJ IVP PRN ×2 (21:03→21:08)
[2019-10-11] MEDS ORDERED: Ondansetron 4 MG/2 ML VIAL IVP PRN (21:03)
[2019-10-11] MEDS ORDERED: Ipratropium/Albuterol Neb 3 ML IH PRN (21:07)
[2019-10-11] MEDS: 0.9 % Sodium Chloride 1,000 ML IVC SCH ×2 (21:25→22:47)
[2019-10-11] MEDS: *HR* Heparin 5,000 UNIT/ML VIAL SQ SCH (21:25)
[2019-10-12] MEDS: Piperacillin/Tazobactam 3.375 GM in 0.9 % Sodium Chloride Mini Bag 100 ML IVPB SCH ×2 (00:25→09:22)
[2019-10-12 01:58] LABS: Hemoglobin 7.4 g/dL (11.5-15.4)
[2019-10-12 01:59] LABS: Hematocrit 24.8 % (35.3-44.9); Mean Corpuscular HGB Conc 29.8 g/dL (31.6-35.5); Mean Corpuscular Hemoglobin 25.2 pg (28.0-33.3); Mean Corpuscular Volume 84.4 fL (83.0-100.0); Mean Platelet Volume 10.2 fL (9.4-12.4); Nucleated Red Blood Cells 2.1 /100 WBC (0); Platelet Count 205 K/mcL (140-400); Red Blood Count 2.94 M/mcL (3.82-4.97); Red Cell Distribution Width 22.3 % (11.5-14.5); White Blood Count 1.4 K/mcL (4.3-11.1)
[2019-10-12 02:17] LABS: Alanine Aminotransferase 15 Units/L (7-52); Albumin 2.7 g/dL (3.5-5.7); Albumin/Globulin Ratio 0.8 (1.1-2.2); Alkaline Phosphatase 217 Units/L (34-104); Aspartate Amino Transferase 26 Units/L (13-39); BUN/Creatinine Ratio 13 (6-26); Bilirubin,Total 0.5 mg/dL (0.3-1.0); Blood Urea Nitrogen 8 mg/dL (6-20); Calcium 7.5 mg/dL (8.6-10.3); Carbon Dioxide 20 mEq/L (23-29); Chloride 101 mEq/L (98-107); Globulin 3.2 g/dL (2.4-3.5); Glucose 116 mg/dL (70-105); Magnesium 1.2 mg/dL (1.6-2.6); Osmolality,Calculated 279 (280-300); Phosphorous 4.4 mg/dL (2.7-4.5); Potassium 3.7 mEq/L (3.5-5.1); Sodium 135 mEq/L (136-145); Total Protein 5.9 g/dL (6.4-8.9); eGFR For African Americans > 60 (> 60); eGFR For Non-African Americans > 60 (> 60)
[2019-10-12 02:29] LABS: Lymphocytes # 0.8 K/mcL (0.6-4.6); Monocytes # 0.2 K/mcL (0.0-1.3); Neutrophils # 0.4 K/mcL (1.6-8.9)
[2019-10-12 02:30] LABS: Anisocytosis 1+ (Not Present); Platelet Estimate Normal (Normal); Reactive Lymphocytes Present (Not Present)
[2019-10-12] MEDS: *HR* Heparin 5,000 UNIT/ML VIAL SQ SCH ×3 (06:15→22:12)
[2019-10-12] MEDS ORDERED: *HR* OxyCODONE Immed Rel 5 MG TABLET PO PRN (08:27)
[2019-10-12] MEDS ORDERED: Diphenoxylate/Atropine 1 TAB TABLET PO PRN (08:27)
[2019-10-12] MEDS: dexAMETHasone 4 MG TABLET PO SCH (09:22)
[2019-10-12] MEDS: Cholecalciferol (D-3) 1,000 UNIT (25MCG) TABLET PO SCH (09:27)
[2019-10-12] MEDS: Folic Acid 1 MG TABLET PO SCH (09:28)
[2019-10-12] MEDS: Lactobacillus 1 EACH CAP.SPRINK PO SCH ×2 (09:28→19:45)
[2019-10-12] MEDS: BuPROPion XL (24 HR) 150 MG TABLET PO SCH (09:28)
[2019-10-12 13:56] LABS: Bilirubin,Urine Negative (Negative); Blood,Urine Negative (Negative); Clarity,Urine Clear (Clear); Color,Urine Yellow (Yellow); Glucose,Urine (UA) Normal (Normal); Ketones,Urine Negative (Negative); Leukocyte Esterase,Urine Negative (Negative); Nitrite,Urine Negative (Negative); Protein,Urine Negative (Neg-Trace); Specific Gravity,Urine 1.017 (1.010-1.025); Urobilinogen,Urine Normal (Normal)
[2019-10-13 01:35] LABS: Basophils % 0.2 %; Eosinophils % 0.2 %; Hemoglobin 6.8 g/dL (11.5-15.4); Immature Granulocytes % 0.7 % (0-4); Lymphocytes % 23.3 %; Mean Corpuscular HGB Conc 30.9 g/dL (31.6-35.5); Mean Corpuscular Hemoglobin 26.1 pg (28.0-33.3); Mean Corpuscular Volume 84.3 fL (83.0-100.0); Mean Platelet Volume 9.9 fL (9.4-12.4); Monocytes % 23.3 %; Neutrophils # 2.2 K/mcL (1.6-8.9); Nucleated Red Blood Cells 2.6 /100 WBC (0); Platelet Count 222 K/mcL (140-400); Red Blood Count 2.61 M/mcL (3.82-4.97); Red Cell Distribution Width 22.3 % (11.5-14.5); Segmented Neutrophils % 52.3 %
[2019-10-13 01:44] LABS: White Blood Count 4.2 K/mcL (4.3-11.1)
[2019-10-13 01:54] LABS: Alanine Aminotransferase 17 Units/L (7-52); Albumin 2.5 g/dL (3.5-5.7); Albumin/Globulin Ratio 0.8 (1.1-2.2); Alkaline Phosphatase 211 Units/L (34-104); Aspartate Amino Transferase 24 Units/L (13-39); BUN/Creatinine Ratio 20 (6-26); Bilirubin,Total 0.4 mg/dL (0.3-1.0); Blood Urea Nitrogen 9 mg/dL (6-20); Calcium 7.3 mg/dL (8.6-10.3); Carbon Dioxide 21 mEq/L (23-29); Chloride 99 mEq/L (98-107); Globulin 3.2 g/dL (2.4-3.5); Glucose 122 mg/dL (70-105); Magnesium 1.9 mg/dL (1.6-2.6); Osmolality,Calculated 274 (280-300); Potassium 3.1 mEq/L (3.5-5.1); Sodium 132 mEq/L (136-145); Total Protein 5.7 g/dL (6.4-8.9); eGFR For African Americans > 60 (> 60); eGFR For Non-African Americans > 60 (> 60)
[2019-10-13 02:12] LABS: Platelet Estimate Normal (Normal)
[2019-10-13] MEDS: *HR* Heparin 5,000 UNIT/ML VIAL SQ SCH (05:49)
[2019-10-13] MEDS ORDERED: Potassium Chloride Elixir 20 MEQ/15 ML UDC PO ONE (07:22)
[2019-10-13 07:54] LABS: Hematocrit 21.5 % (35.3-44.9); Hemoglobin 6.7 g/dL (11.5-15.4); Mean Corpuscular HGB Conc 31.2 g/dL (31.6-35.5); Mean Corpuscular Hemoglobin 26.3 pg (28.0-33.3); Mean Corpuscular Volume 84.3 fL (83.0-100.0); Mean Platelet Volume 9.9 fL (9.4-12.4); Platelet Count 231 K/mcL (140-400); Red Blood Count 2.55 M/mcL (3.82-4.97); Red Cell Distribution Width 22.2 % (11.5-14.5)
[2019-10-13 07:56] LABS: White Blood Count 7.5 K/mcL (4.3-11.1)
[2019-10-13] MEDS ORDERED: Ferumoxytol 510 MG in 0.9 % Sodium Chloride 100 ML IVPB ONE (08:18)
[2019-10-13] MEDS: Folic Acid 1 MG TABLET PO SCH (08:30)
[2019-10-13] MEDS: Lactobacillus 1 EACH CAP.SPRINK PO SCH (08:30)
[2019-10-13] MEDS: dexAMETHasone 4 MG TABLET PO SCH (08:30)
[2019-10-13] MEDS: BuPROPion XL (24 HR) 150 MG TABLET PO SCH (08:30)
[2019-10-13] MEDS: Cholecalciferol (D-3) 1,000 UNIT (25MCG) TABLET PO SCH (08:30)
[2019-10-13] MEDS ORDERED: 0.9 % Sodium Chloride 250 ML ONE (09:47)
[2019-10-13 14:36] LABS: Hematocrit 26.9 % (35.3-44.9); Hemoglobin 8.5 g/dL (11.5-15.4)
[2019-10-13 15:34] VITALS: BP 138/87
== END 2019-10-13 16:21 | disposition home or self-care (01) ==
LOC: 2ANU → SUATTDRO 19:13
PROVIDERS: ADMIT Family Medicine; ATTEND Internal Medicine

== ENCOUNTER 2019-10-20 16:48 | Inpatient (IN) ==
[2019-10-20] MEDS ORDERED: Ondansetron 4 MG/2 ML VIAL IVP ONE (16:59)
[2019-10-20] MEDS ORDERED: 0.9 % Sodium Chloride 1,000 ML IVC ONE ×2 (16:59→17:53)
[2019-10-20 17:27] LABS: Basophils % 0.3 %; Monocytes % 3.6 %; Nucleated Red Blood Cells 0.1 /100 WBC (0)
[2019-10-20 17:31] LABS: Basophils # 0.1 K/mcL (0.0-0.2); Eosinophils % 0.1 %; Hemoglobin 10.7 g/dL (11.5-15.4); Lymphocytes # 2.2 K/mcL (0.6-4.6); Lymphocytes % 6.4 %; Mean Corpuscular HGB Conc 31.5 g/dL (31.6-35.5); Mean Corpuscular Hemoglobin 27.1 pg (28.0-33.3); Mean Corpuscular Volume 86.1 fL (83.0-100.0); Mean Platelet Volume 10.2 fL (9.4-12.4); Platelet Count 214 K/mcL (140-400); Red Blood Count 3.95 M/mcL (3.82-4.97); Red Cell Distribution Width 22.3 % (11.5-14.5); Segmented Neutrophils % 87.6 %
[2019-10-20 17:38] LABS: Monocytes # 1.2 K/mcL (0.0-1.3); Neutrophils # 30.1 K/mcL (1.6-8.9); White Blood Count 34.4 K/mcL (4.3-11.1)
[2019-10-20 17:45] LABS: Albumin 2.7 g/dL (3.5-5.7); Albumin/Globulin Ratio 0.8 (1.1-2.2); Bilirubin,Total 0.6 mg/dL (0.3-1.0); Calcium 8.4 mg/dL (8.6-10.3); Globulin 3.2 g/dL (2.4-3.5); Total Protein 5.9 g/dL (6.4-8.9); Troponin I 0.11 ng/mL (< 0.04)
[2019-10-20 18:04] LABS: Platelet Estimate Normal (Normal)
[2019-10-20] MEDS ORDERED: 0.9 % Sodium Chloride 500 ML IVC ONE (19:18)
[2019-10-20] MEDS ORDERED: Piperacillin/Tazobactam 3.375 GM in 0.9 % Sodium Chloride Mini Bag 100 ML IVPB ONE (20:35)
[2019-10-20 20:40] LABS: Bilirubin,Urine Negative (Negative); Blood,Urine Negative (Negative); Clarity,Urine Clear (Clear); Color,Urine Yellow (Yellow); Glucose,Urine (UA) Normal (Normal); Ketones,Urine Negative (Negative); Leukocyte Esterase,Urine Negative (Negative); Nitrite,Urine Negative (Negative); Protein,Urine 30 mg/dL (Neg-Trace); Specific Gravity,Urine 1.011 (1.010-1.025); Urobilinogen,Urine Normal (Normal)
[2019-10-20 20:54] LABS: Squamous Epithelial Cell,Urine Few per lpf (None-Few)
[2019-10-20 20:55] LABS: Amorphous Sediment,Urine Moderate per hpf (Few)
[2019-10-20] MEDS ORDERED: Naloxone 0.4 MG/ML INJ IVP PRN (22:26)
[2019-10-20] MEDS ORDERED: Acetaminophen 325 MG TABLET PO PRN (22:26)
[2019-10-20] MEDS ORDERED: Diphenoxylate/Atropine 1 TAB TABLET PO PRN (22:34)
[2019-10-20] MEDS ORDERED: 0.9 % Sodium Chloride 1,000 ML IVC SCH (23:15)
[2019-10-20] MEDS: Ondansetron 4 MG/2 ML VIAL IVP PRN (23:51)
[2019-10-21 00:38] LABS: Lymphocytes % 2.8 %; Monocytes % 2.9 %
[2019-10-21 00:39] LABS: Basophils % 0.2 %
[2019-10-21 00:40] LABS: Basophils # 0.1 K/mcL (0.0-0.2); Hematocrit 32.4 % (35.3-44.9); Immature Granulocytes % 3.7 % (0-4); Lymphocytes # 1.1 K/mcL (0.6-4.6); Mean Corpuscular HGB Conc 30.9 g/dL (31.6-35.5); Mean Corpuscular Volume 87.6 fL (83.0-100.0); Mean Platelet Volume 9.8 fL (9.4-12.4); Monocytes # 1.1 K/mcL (0.0-1.3); Neutrophils # 33.8 K/mcL (1.6-8.9); Platelet Count 177 K/mcL (140-400); Red Cell Distribution Width 22.4 % (11.5-14.5); Segmented Neutrophils % 90.4 %
[2019-10-21 00:43] LABS: White Blood Count 37.4 K/mcL (4.3-11.1)
[2019-10-21 00:48] LABS: BUN/Creatinine Ratio 15 (6-26); Blood Urea Nitrogen 15 mg/dL (6-20); Calcium 7.4 mg/dL (8.6-10.3); Carbon Dioxide 20 mEq/L (23-29); Chloride 100 mEq/L (98-107); Glucose 71 mg/dL (70-105); Magnesium 1.2 mg/dL (1.6-2.6); Osmolality,Calculated 281 (280-300); Potassium 4.1 mEq/L (3.5-5.1); Sodium 136 mEq/L (136-145); eGFR For African Americans > 60 (> 60); eGFR For Non-African Americans 56 (> 60)
[2019-10-21] MEDS ORDERED: Prochlorperazine 10 MG/2 ML VIAL IM PRN (00:55)
[2019-10-21 01:05] LABS: Platelet Estimate Decreased (Normal)
[2019-10-21] MEDS: Prochlorperazine 10 MG/2 ML VIAL IVP PRN ×2 (01:26→13:09)
[2019-10-21] MEDS: *HR* Metoprolol 5 MG/5 ML VIAL IVP PRN ×2 (04:15→15:04)
[2019-10-21] MEDS: Piperacillin/Tazobactam 3.375 GM in 0.9 % Sodium Chloride Mini Bag 100 ML IVPB SCH ×3 (04:15→21:05)
[2019-10-21] MEDS ORDERED: 0.9 % Sodium Chloride 1,000 ML IVC SCH (04:15)
[2019-10-21] MEDS: *HR* Enoxaparin 40 MG/0.4 ML SYRINGE SQ SCH (04:16)
[2019-10-21] MEDS: BuPROPion XL (24 HR) 150 MG TABLET PO SCH (09:32)
[2019-10-21] MEDS: Aspirin Enteric Coated 81 MG Tablet PO SCH (09:32)
[2019-10-21] MEDS: Folic Acid 1 MG TABLET PO SCH (09:32)
[2019-10-21] MEDS: 0.9 % Sodium Chloride 1,000 ML IVC SCH ×2 (11:11→21:06)
[2019-10-22] MEDS ORDERED: Dextrose Gel 15 GM/37.5 ML TUBE PO ONE (04:20)
[2019-10-22] MEDS ORDERED: D5% in Water 1,000 ML IVC PRN (04:21)
[2019-10-22] MEDS ORDERED: Dextrose Gel 15 GM/37.5 ML TUBE PO PRN ×2 (04:21)
[2019-10-22] MEDS ORDERED: *HR* Dextrose 50 % in Water (Syg) 50 ML SYRINGE IVP PRN (04:21)
[2019-10-22 04:36] LABS: Basophils # 0.1 K/mcL (0.0-0.2); Basophils % 0.4 %; Eosinophils % 0.1 %; Hematocrit 29.6 % (35.3-44.9); Hemoglobin 8.8 g/dL (11.5-15.4); Lymphocytes # 2.2 K/mcL (0.6-4.6); Lymphocytes % 9.8 %; Mean Corpuscular HGB Conc 29.7 g/dL (31.6-35.5); Mean Corpuscular Hemoglobin 26.6 pg (28.0-33.3); Mean Corpuscular Volume 89.4 fL (83.0-100.0); Mean Platelet Volume 9.9 fL (9.4-12.4); Monocytes # 1.2 K/mcL (0.0-1.3); Monocytes % 5.3 %; Neutrophils # 18.7 K/mcL (1.6-8.9); Nucleated Red Blood Cells 0.3 /100 WBC (0); Platelet Count 141 K/mcL (140-400); Red Blood Count 3.31 M/mcL (3.82-4.97); Red Cell Distribution Width 22.5 % (11.5-14.5); Segmented Neutrophils % 82.4 %; White Blood Count 22.7 K/mcL (4.3-11.1)
[2019-10-22 04:42] LABS: BUN/Creatinine Ratio 15 (6-26); Blood Urea Nitrogen 15 mg/dL (6-20); Calcium 6.5 mg/dL (8.6-10.3); Carbon Dioxide 16 mEq/L (23-29); Chloride 110 mEq/L (98-107); Glucose 52 mg/dL (70-105); Magnesium 1.5 mg/dL (1.6-2.6); Osmolality,Calculated 292 (280-300); Potassium 3.1 mEq/L (3.5-5.1); Sodium 142 mEq/L (136-145); eGFR For African Americans > 60 (> 60); eGFR For Non-African Americans 56 (> 60)
[2019-10-22] MEDS ORDERED: Potassium Chloride Elixir 20 MEQ/15 ML UDC PO ONE ×2 (04:46→08:00)
[2019-10-22] MEDS: *HR* Enoxaparin 40 MG/0.4 ML SYRINGE SQ SCH (05:23)
[2019-10-22] MEDS: Piperacillin/Tazobactam 3.375 GM in 0.9 % Sodium Chloride Mini Bag 100 ML IVPB SCH ×3 (05:23→20:12)
[2019-10-22] MEDS ORDERED: 0.9 % Sodium Chloride 1,000 ML IVC SCH (05:45)
[2019-10-22] MEDS: Calcium Gluconate 1gm/50mL 1 GM/50 ML BAG IVPB SCH ×2 (06:02→16:01)
[2019-10-22] MEDS ORDERED: Hydrocortisone Sodium Succ 100 MG/2 ML VIAL IVP ONE (07:12)
[2019-10-22] MEDS: BuPROPion XL (24 HR) 150 MG TABLET PO SCH (09:11)
[2019-10-22] MEDS: Aspirin Enteric Coated 81 MG Tablet PO SCH (09:11)
[2019-10-22] MEDS: Folic Acid 1 MG TABLET PO SCH (09:11)
[2019-10-22 09:16] LABS: Adenovirus F 40/41 PCR Not detected (Not detect); Astrovirus PCR Not detected (Not detect); C.difficile Toxin A/B Gene PCR Not detected (Not detect); Campylobacter by PCR Not detected (Not detect); Cryptosporidium by PCR Not detected (Not detect); Cyclospora cayetanensis PCR Not detected (Not detect); E. coli O157 by PCR Not detected (Not detect); Entamoeba histolytica PCR Not detected (Not detect); Enteroaggregative E.coli(EAEC) Not detected (Not detect); Enteropathogenic E.coli(EPEC) Not detected (Not detect); Enterotoxigenic E.coli (ETEC) Not detected (Not detect); Giardia lamblia PCR Not detected (Not detect); Norovirus GI/GII PCR Not detected (Not detect); Plesiomonas shigelloides PCR Not detected (Not detect); Rotavirus A PCR Not detected (Not detect); Salmonella PCR Not detected (Not detect); Sapovirus PCR Not detected (Not detect); Shig/EnteroinvasiveE coli EIEC Not detected (Not detect); Shigalike tox-prod E coli STEC Not detected (Not detect); Vibrio PCR Not detected (Not detect); Vibrio cholerae PCR Not detected (Not detect); Yersinia enterocolitica PCR Not detected (Not detect)
[2019-10-22 09:17] LABS: Hematocrit 32.1 % (35.3-44.9); Hemoglobin 9.1 g/dL (11.5-15.4)
[2019-10-22 09:31] LABS: Albumin 2.3 g/dL (3.5-5.7); Albumin/Globulin Ratio 0.9 (1.1-2.2); Bilirubin,Direct 0.3 mg/dL (0.0-0.2); Bilirubin,Indirect 0.3 mg/dL (0.0-1.0); Bilirubin,Total 0.6 mg/dL (0.3-1.0); Globulin 2.6 g/dL (2.4-3.5); Total Protein 4.9 g/dL (6.4-8.9)
[2019-10-22] MEDS ORDERED: Isovue-370 500 ML BOTTLE IVP ONE (10:23)
[2019-10-22 12:14] LABS: Hematocrit 28.1 % (35.3-44.9); Hemoglobin 8.3 g/dL (11.5-15.4)
[2019-10-22 12:36] LABS: BUN/Creatinine Ratio 13 (6-26); Blood Urea Nitrogen 15 mg/dL (6-20); Calcium 6.6 mg/dL (8.6-10.3); Carbon Dioxide 15 mEq/L (23-29); Chloride 115 mEq/L (98-107); Glucose 98 mg/dL (70-105); Magnesium 1.9 mg/dL (1.6-2.6); Osmolality,Calculated 299 (280-300); Potassium 4.3 mEq/L (3.5-5.1); Sodium 144 mEq/L (136-145); eGFR For African Americans > 60 (> 60); eGFR For Non-African Americans 50 (> 60)
[2019-10-22] MEDS: Albumin Human 5% 12.5 GM/250 ML IV.SOLN IVC SCH ×2 (15:27→16:02)
[2019-10-22] MEDS ORDERED: Calcium Gluconate 1gm/50mL 1 GM/50 ML BAG IVPB SCH (16:00)
[2019-10-22 16:24] LABS: Hematocrit 28.9 % (35.3-44.9); Hemoglobin 8.6 g/dL (11.5-15.4)
[2019-10-22] MEDS: Ondansetron 4 MG/2 ML VIAL IVP PRN (18:27)
[2019-10-22 20:48] LABS: Hemoglobin 8.3 g/dL (11.5-15.4)
[2019-10-23 01:01] LABS: Basophils % 0.1 %; Hemoglobin 8.4 g/dL (11.5-15.4); Immature Granulocytes % 1.1 % (0-4); Lymphocytes % 5.9 %; Mean Corpuscular Hemoglobin 26.3 pg (28.0-33.3); Mean Corpuscular Volume 90.9 fL (83.0-100.0); Mean Platelet Volume 10.1 fL (9.4-12.4); Monocytes # 0.8 K/mcL (0.0-1.3); Neutrophils # 14.7 K/mcL (1.6-8.9); Nucleated Red Blood Cells 0.3 /100 WBC (0); Platelet Count 125 K/mcL (140-400); Red Blood Count 3.19 M/mcL (3.82-4.97); Red Cell Distribution Width 22.7 % (11.5-14.5); Segmented Neutrophils % 87.9 %; White Blood Count 16.7 K/mcL (4.3-11.1)
[2019-10-23 01:21] LABS: Albumin 2.7 g/dL (3.5-5.7); Albumin/Globulin Ratio 1.1 (1.1-2.2); Bilirubin,Direct 0.4 mg/dL (0.0-0.2); Bilirubin,Indirect 0.3 mg/dL (0.0-1.0); Bilirubin,Total 0.7 mg/dL (0.3-1.0); Globulin 2.4 g/dL (2.4-3.5); Total Protein 5.1 g/dL (6.4-8.9)
[2019-10-23 01:46] LABS: Alanine Aminotransferase 52 Units/L (7-52); Albumin 2.7 g/dL (3.5-5.7); Albumin/Globulin Ratio 1.1 (1.1-2.2); Alkaline Phosphatase 382 Units/L (34-104); Aspartate Amino Transferase 102 Units/L (13-39); BUN/Creatinine Ratio 15 (6-26); Bilirubin,Total 0.7 mg/dL (0.3-1.0); Blood Urea Nitrogen 12 mg/dL (6-20); Calcium 7.2 mg/dL (8.6-10.3); Carbon Dioxide 18 mEq/L (23-29); Chloride 120 mEq/L (98-107); Globulin 2.5 g/dL (2.4-3.5); Glucose 185 mg/dL (70-105); Magnesium 1.9 mg/dL (1.6-2.6); Osmolality,Calculated 317 (280-300); Phosphorous 2.4 mg/dL (2.7-4.5); Potassium 3.1 mEq/L (3.5-5.1); Sodium 151 mEq/L (136-145); Total Protein 5.2 g/dL (6.4-8.9); eGFR For African Americans > 60 (> 60); eGFR For Non-African Americans > 60 (> 60)
[2019-10-23] MEDS: Piperacillin/Tazobactam 3.375 GM in 0.9 % Sodium Chloride Mini Bag 100 ML IVPB SCH ×3 (05:05→21:31)
[2019-10-23] MEDS ORDERED: *HR* Heparin 5,000 UNIT/ML VIAL SQ SCH (06:00)
[2019-10-23] MEDS: Folic Acid 1 MG TABLET PO SCH (08:47)
[2019-10-23] MEDS: Aspirin Enteric Coated 81 MG Tablet PO SCH (08:47)
[2019-10-23] MEDS: BuPROPion XL (24 HR) 150 MG TABLET PO SCH (08:47)
[2019-10-23] MEDS ORDERED: Aminoglycoside Consult 1 EACH MC ONE (09:32)
[2019-10-23] MEDS ORDERED: *HR* EPINEPHrine 1 MG/10 ML SYRINGE IVP ONE (10:33)
[2019-10-23] MEDS ORDERED: *HR* Metoprolol 5 MG/5 ML VIAL IVP PRN (10:53)
[2019-10-23] MEDS ORDERED: Diphenoxylate/Atropine 1 TAB TABLET PO PRN (10:53)
[2019-10-23] MEDS ORDERED: Acetaminophen 325 MG TABLET PO PRN (10:53)
[2019-10-23] MEDS ORDERED: Dextrose Gel 15 GM/37.5 ML TUBE PO PRN ×2 (10:53)
[2019-10-23] MEDS ORDERED: Ondansetron 4 MG/2 ML VIAL IVP PRN (10:53)
[2019-10-23] MEDS ORDERED: Prochlorperazine 10 MG/2 ML VIAL IVP PRN (10:53)
[2019-10-23] MEDS ORDERED: D5% in Water 1,000 ML IVC PRN (10:53)
[2019-10-23] MEDS ORDERED: *HR* Dextrose 50 % in Water (Syg) 50 ML SYRINGE IVP PRN (10:53)
[2019-10-23] MEDS ORDERED: Naloxone 0.4 MG/ML INJ IVP PRN (10:53)
[2019-10-23] MEDS: *HR* Heparin 5,000 UNIT/ML VIAL SQ SCH (17:45)
[2019-10-23 19:35] LABS: BUN/Creatinine Ratio 18 (6-26); Blood Urea Nitrogen 14 mg/dL (6-20); Calcium 7.1 mg/dL (8.6-10.3); Carbon Dioxide 19 mEq/L (23-29); Chloride 117 mEq/L (98-107); Glucose 117 mg/dL (70-105); Osmolality,Calculated 310 (280-300); Potassium 3.2 mEq/L (3.5-5.1); Sodium 149 mEq/L (136-145); eGFR For African Americans > 60 (> 60); eGFR For Non-African Americans > 60 (> 60)
[2019-10-24 02:12] LABS: Hematocrit 29.3 % (35.3-44.9); Hemoglobin 8.5 g/dL (11.5-15.4); Mean Corpuscular Hemoglobin 25.9 pg (28.0-33.3); Mean Corpuscular Volume 89.3 fL (83.0-100.0); Mean Platelet Volume 10.7 fL (9.4-12.4); Platelet Count 142 K/mcL (140-400); Red Blood Count 3.28 M/mcL (3.82-4.97); Red Cell Distribution Width 22.8 % (11.5-14.5); White Blood Count 15.7 K/mcL (4.3-11.1)
[2019-10-24 02:29] LABS: BUN/Creatinine Ratio 16 (6-26); Blood Urea Nitrogen 13 mg/dL (6-20); Carbon Dioxide 18 mEq/L (23-29); Chloride 119 mEq/L (98-107); Glucose 79 mg/dL (70-105); Osmolality,Calculated 311 (280-300); Potassium 3.1 mEq/L (3.5-5.1); Sodium 151 mEq/L (136-145); eGFR For African Americans > 60 (> 60); eGFR For Non-African Americans > 60 (> 60)
[2019-10-24] MEDS: Piperacillin/Tazobactam 3.375 GM in 0.9 % Sodium Chloride Mini Bag 100 ML IVPB SCH (05:26)
[2019-10-24] MEDS: *HR* Heparin 5,000 UNIT/ML VIAL SQ SCH ×2 (05:27→17:33)
[2019-10-24] MEDS: BuPROPion XL (24 HR) 150 MG TABLET PO SCH (07:31)
[2019-10-24] MEDS: Aspirin Enteric Coated 81 MG Tablet PO SCH (07:31)
[2019-10-24] MEDS: Folic Acid 1 MG TABLET PO SCH (07:31)
[2019-10-24] MEDS ORDERED: *HR* Succinylcholine 200 MG/10 ML VIAL IVP ONE (10:56)
[2019-10-24] MEDS ORDERED: *HR* Propofol 200 MG/20 ML VIAL IVP ONE (10:56)
[2019-10-24] MEDS ORDERED: *HR* Rocuronium Bromide 50 MG/5 ML VIAL IVC ONE (10:56)
[2019-10-24] MEDS ORDERED: Lidocaine 2% Syringe 100 MG/5 ML IV ONE (10:56)
[2019-10-24] MEDS ORDERED: Ondansetron 4 MG/2 ML VIAL IVP ONE (10:56)
[2019-10-24] MEDS ORDERED: Lidocaine -MPF 4% 5 ML AMPUL INFILT ONE (10:56)
[2019-10-24] MEDS ORDERED: *HR* FentaNYL (PF) 100 MCG/2 ML VIAL ONE (13:53)
[2019-10-24] MEDS ORDERED: *HR* EPINEPHrine 1 MG/10 ML SYRINGE INTRATRACH PRN (14:20)
[2019-10-24] MEDS ORDERED: *HR* Midazolam HCl 2 MG/2 ML VIAL ONE (14:56)
[2019-10-24] MEDS ORDERED: D5% in Water 1,000 ML IVC SCH (15:30)
[2019-10-24] MEDS ORDERED: Artificial Tears SOLN 15 ML BOTTLE BOTH EYES PRN (15:31)
[2019-10-24] MEDS ORDERED: *HR* Midazolam HCl 5 MG/5 ML VIAL IVP ONE (15:44)
[2019-10-24] MEDS ORDERED: *HR* HYDROmorphone (PF) 1 MG/ML SYRINGE IVP PRN (16:00)
[2019-10-24] MEDS: Piperacillin/Tazobactam 3.375 GM in D5% in Water (Mini-Bag+) 100 ML IVPB SCH ×3 (16:12→23:37)
[2019-10-24] MEDS: Artificial Tears SOLN 15 ML BOTTLE BOTH EYES SCH ×3 (16:32→23:47)
[2019-10-24] MEDS: *HR* HYDROmorphone 2 MG/ML SYRINGE IVP SCH ×3 (16:32→23:08)
[2019-10-24 16:43] LABS: ABG Base Excess -4 mEq/L (-2 to 3); ABG HCO3 20 mEq/L (21-27); ABG Oxygen Saturation 96 % (95-98); ABG PCO2 33 mmHg (35-45); ABG PO2 81 mmHg (85-104); ABG TCO2 21 mEq/L (20-26); Blood Gas Modality ASSIST CONTROL; Blood Gas VT 500 cc
[2019-10-24] MEDS: Chlorhexidine Rinse 15 ML MOUTHWASH MM SCH (20:10)
[2019-10-24 23:06] LABS: BUN/Creatinine Ratio 14 (6-26); Blood Urea Nitrogen 15 mg/dL (6-20); Calcium 6.9 mg/dL (8.6-10.3); Carbon Dioxide 17 mEq/L (23-29); Chloride 121 mEq/L (98-107); Glucose 99 mg/dL (70-105); Osmolality,Calculated 317 (280-300); Sodium 153 mEq/L (136-145); eGFR For African Americans > 60 (> 60); eGFR For Non-African Americans 52 (> 60)
[2019-10-24] MEDS: Dexamethasone 4 MG/ML VIAL IVP SCH (23:08)
[2019-10-25] MEDS: *HR* HYDROmorphone 2 MG/ML SYRINGE IVP SCH ×4 (02:22→10:35)
[2019-10-25] MEDS: Artificial Tears SOLN 15 ML BOTTLE BOTH EYES SCH ×3 (04:22→12:50)
[2019-10-25 05:16] LABS: ABG Base Excess -5 mEq/L (-2 to 3); ABG HCO3 19 mEq/L (21-27); ABG Oxygen Saturation 98 % (95-98); ABG PCO2 32 mmHg (35-45); ABG PH 7.39 pH Units (7.32-7.45); ABG PO2 102 mmHg (85-104); ABG TCO2 20 mEq/L (20-26); Blood Gas Modality AF; Blood Gas VT 500 cc
[2019-10-25 05:21] LABS: Basophils % 0.1 %; Hematocrit 26.5 % (35.3-44.9); Hemoglobin 7.8 g/dL (11.5-15.4); Lymphocytes % 7.6 %; Mean Corpuscular HGB Conc 29.4 g/dL (31.6-35.5); Mean Corpuscular Hemoglobin 26.5 pg (28.0-33.3); Mean Corpuscular Volume 90.1 fL (83.0-100.0); Mean Platelet Volume 10.7 fL (9.4-12.4); Monocytes # 0.6 K/mcL (0.0-1.3); Monocytes % 4.3 %; Neutrophils # 11.6 K/mcL (1.6-8.9); Nucleated Red Blood Cells 0.5 /100 WBC (0); Platelet Count 106 K/mcL (140-400); Red Blood Count 2.94 M/mcL (3.82-4.97); Red Cell Distribution Width 23.4 % (11.5-14.5); White Blood Count 13.6 K/mcL (4.3-11.1)
[2019-10-25 05:38] LABS: Albumin 2.4 g/dL (3.5-5.7); Albumin/Globulin Ratio 0.8 (1.1-2.2); Bilirubin,Total 0.8 mg/dL (0.3-1.0); Calcium 6.6 mg/dL (8.6-10.3); Globulin 2.9 g/dL (2.4-3.5); Total Protein 5.3 g/dL (6.4-8.9)
[2019-10-25 06:17] LABS: Anisocytosis 1+ (Not Present); Platelet Estimate Slight Decrease (Normal)
[2019-10-25] MEDS: Piperacillin/Tazobactam 3.375 GM in D5% in Water (Mini-Bag+) 100 ML IVPB SCH ×2 (06:29→13:05)
[2019-10-25] MEDS: Dexamethasone 4 MG/ML VIAL IVP SCH (06:31)
[2019-10-25] MEDS: *HR* Heparin 5,000 UNIT/ML VIAL SQ SCH (06:33)
[2019-10-25] MEDS: Chlorhexidine Rinse 15 ML MOUTHWASH MM SCH (08:44)
[2019-10-25] MEDS ORDERED: Dexmedetomidine HCl 400 MCG/100 ML MLS IVC SCH (09:00)
[2019-10-25 09:41] LABS: Appearance of Body Fluid Cloudy (Clear)
[2019-10-25 09:42] LABS: Volume of Body Fluid 12 mL
[2019-10-25] MEDS: BuPROPion XL (24 HR) 150 MG TABLET PO SCH (10:34)
[2019-10-25] MEDS: Aspirin Enteric Coated 81 MG Tablet PO SCH (10:34)
[2019-10-25] MEDS: Folic Acid 1 MG TABLET PO SCH (10:34)
[2019-10-25] MEDS ORDERED: D5 IVC SCH (11:15)
[2019-10-25] MEDS ORDERED: WATER IVC SCH (11:15)
[2019-10-25] MEDS ORDERED: Insulin LISPRO 300 UNITS/3 ML VIAL SQ SCH (12:00)
[2019-10-25] MEDS ORDERED: *HR* Heparin 5,000 UNIT/ML VIAL IVP PRN ×2 (13:25)
[2019-10-25] MEDS ORDERED: Ringers Solution, Lactated 1,000 ML ONE ×2 (13:28→14:48)
[2019-10-25] MEDS ORDERED: Heparin 25,000 UNIT/250 ML D5W 25,000 UNIT/250 ML IV.SOLN IVC SCH (13:30)
[2019-10-25 14:03] LABS: Hematocrit 26.5 % (35.3-44.9); Hemoglobin 7.8 g/dL (11.5-15.4); Mean Corpuscular HGB Conc 29.4 g/dL (31.6-35.5); Mean Corpuscular Hemoglobin 26.5 pg (28.0-33.3); Mean Corpuscular Volume 90.1 fL (83.0-100.0); Mean Platelet Volume 11.4 fL (9.4-12.4); Platelet Count 115 K/mcL (140-400); Red Blood Count 2.94 M/mcL (3.82-4.97); Red Cell Distribution Width 23.2 % (11.5-14.5); White Blood Count 12.9 K/mcL (4.3-11.1)
[2019-10-25 14:13] LABS: Heparin anti-factor XA UFH < 0.04 IU/mL (0.30-0.70); INR 1.8; Prothrombin Time 20.6 Seconds (9.4-12.1)
[2019-10-25] MEDS ORDERED: Norepinephrine 4 MG in 0.9 % Sodium Chloride 250 ML IVC SCH (14:15)
[2019-10-25 14:23] LABS: Calcium 6.4 mg/dL (8.6-10.3); Magnesium 1.7 mg/dL (1.6-2.6); Potassium 3.8 mEq/L (3.5-5.1)
[2019-10-25 14:27] LABS: Troponin I 0.05 ng/mL (< 0.04)
[2019-10-25 14:29] LABS: ABG Base Excess -9 mEq/L (-2 to 3); ABG HCO3 13 mEq/L (21-27); ABG Oxygen Saturation 100 % (95-98); ABG PCO2 18 mmHg (35-45); ABG PH 7.48 pH Units (7.32-7.45); ABG PO2 163 mmHg (85-104); ABG TCO2 14 mEq/L (20-26)
[2019-10-25] MEDS ORDERED: Calcium Gluconate 1gm/50mL 1 GM/50 ML BAG IVPB PRN (14:30)
[2019-10-25] MEDS ORDERED: Ringers Solution, Lactated 1,000 ML IVC SCH ×2 (15:00→18:30)
[2019-10-25] MEDS ORDERED: Hydrocortisone Sodium Succ 100 MG/2 ML VIAL IVP SCH (15:15)
[2019-10-25] MEDS ORDERED: Morphine Sulfate 2 MG/ML SYRINGE IVP PRN (15:57)
[2019-10-25] MEDS ORDERED: *HR* LORazepam 2 MG/ML VIAL IVP PRN (15:57)
[2019-10-25] MEDS ORDERED: Glycopyrrolate 0.2 MG/ML VIAL IVP PRN ×2 (16:24→18:30)
[2019-10-25] MEDS ORDERED: Naloxone 0.4 MG/ML INJ IVP PRN (18:30)
[2019-10-25] MEDS ORDERED: Prochlorperazine 10 MG/2 ML VIAL IVP PRN (18:30)
[2019-10-25] MEDS ORDERED: Acetaminophen 325 MG TABLET PO PRN (18:30)
[2019-10-25] MEDS ORDERED: Diphenoxylate/Atropine 1 TAB TABLET PO PRN (18:30)
[2019-10-25] MEDS ORDERED: Ondansetron 4 MG/2 ML VIAL IVP PRN (18:30)
[2019-10-25] MEDS: *HR* LORazepam 2 MG/ML VIAL IVP PRN (23:46)
[2019-10-26] MEDS: Morphine Sulfate 2 MG/ML SYRINGE IVP PRN ×3 (00:32→08:28)
[2019-10-26] MEDS: *HR* LORazepam 2 MG/ML VIAL IVP PRN ×2 (06:09→12:35)
[2019-10-26] MEDS ORDERED: Atropine Sulfate 1% 40 DROP/2 ML BOTTLE SL PRN (09:09)
[2019-10-26] MEDS ORDERED: Haloperidol Lactate 5 MG/ML VIAL IVP ONE (09:11)
[2019-10-26] MEDS ORDERED: Morphine Sulfate 2 MG/ML SYRINGE IVP PRN (09:12)
[2019-10-26] MEDS ORDERED: Haloperidol Lactate 5 MG/ML VIAL IVP PRN ×2 (09:13→15:49)
[2019-10-26] MEDS ORDERED: Acetaminophen 650 MG RECTAL SUPP RC PRN (09:13)
[2019-10-26] MEDS: *HR* FentaNYL (PF) 100 MCG/2 ML VIAL IVP PRN ×5 (10:59→21:22)
[2019-10-26] MEDS: Haloperidol Oral Conc 10 MG/5 ML UDC PO SCH ×3 (14:12→23:38)
[2019-10-26] MEDS: Magic Mouthwash 10 ML UD Cup PO SCH ×2 (14:13→16:17)
[2019-10-26] MEDS: FentaNYL (PF) 1,000 MCG in 0.9 % Sodium Chloride 80 ML IVC SCH (14:15)
[2019-10-26 23:23] VITALS: BP 92/61
[2019-10-27] MEDS: *HR* LORazepam 2 MG/ML VIAL IVP PRN ×2 (00:04→02:26)
[2019-10-27] MEDS: *HR* FentaNYL (PF) 100 MCG/2 ML VIAL IVP PRN ×3 (00:48→07:43)
[2019-10-27] MEDS: FentaNYL (PF) 1,000 MCG in 0.9 % Sodium Chloride 80 ML IVC SCH (03:42)
[2019-10-27] MEDS: Haloperidol Oral Conc 10 MG/5 ML UDC PO SCH (06:12)
[2019-10-27] MEDS: Magic Mouthwash 10 ML UD Cup PO SCH ×2 (07:43→11:53)
== END 2019-10-27 12:41 | disposition hospice, inpatient (51) ==
LOC: 2ANU 16:48 → EMEROOARM 16:48 → SUATTDRO 21:01 → 2ANU 21:50 → ICNU 10-22 06:45 → 2ANU 10-22 22:35 → SUATTDRO 10-23 13:24 → ICNU 10-24 15:57 → 2ANU 10-25 20:09
PROVIDERS: ADMIT Student in an Organized Health Care Education/Training Program; ATTEND Internal Medicine

== ENCOUNTER 2019-10-27 10:06 | Inpatient (IN) ==
[2019-10-27] MEDS ORDERED: Atropine Sulfate 1% 40 DROP/2 ML BOTTLE SL PRN (10:21)
[2019-10-27] MEDS ORDERED: Acetaminophen 650 MG RECTAL SUPP RC PRN (10:26)
[2019-10-27] MEDS ORDERED: *HR* LORazepam 2 MG/ML VIAL IVP PRN (10:27)
[2019-10-27] MEDS ORDERED: *HR* FentaNYL (PF) 100 MCG/2 ML VIAL IVP PRN (10:32)
[2019-10-27] MEDS ORDERED: Haloperidol Lactate 5 MG/ML VIAL IVP PRN (10:37)
[2019-10-27] MEDS: Haloperidol Lactate 5 MG/ML VIAL IVP SCH ×3 (12:54→23:31)
[2019-10-27] MEDS: FentaNYL (PF) 1,000 MCG in 0.9 % Sodium Chloride 80 ML IVC SCH (13:26)
[2019-10-28] MEDS: FentaNYL (PF) 1,000 MCG in 0.9 % Sodium Chloride 80 ML IVC SCH (00:02)
[2019-10-28 03:59] VITALS: BP 105/68
== END 2019-10-28 03:17 | disposition expired | DRG 951 ==
LOC: 2ANU 12:42
PROVIDERS: ADMIT Internal Medicine Hospice and Palliative Medicine; ATTEND Internal Medicine Hospice and Palliative Medicine